=== PATIENT | male | born 1950 | race Caucasian/White ===

== ENCOUNTER 2016-08-16 17:51 | Inpatient (IN) | payer MEDICARE, OTHER ==
[~2016-08-16] VITALS: Ht 175.3 cm; Wt 78.5 kg
[2016-08-16 17:57] VITALS: BP 146/64; PULSE 92; RESP 15
[2016-08-16 18:04] LABS: BASOPHILS % (AUTO) 0.3 % (0-3); EOSINOPHILS % (AUTO) 11.1 % (0-5); MONOCYTES % (AUTO) 7.7 % (4-12); Mean Corpuscular Volume 90.4 fL (81-100); Platelet Count 318 bil/L (150-400)
--- NOTE | 2016-08-16 18:05 | ED.REPORT ---
HPI-Chest Pain 40 and Over Date of Service Aug 16, 2016 ED Provider: Dr. Rodriguez Pt is a 65 y/o homeless male w/ a hx of CAD with AZ s/p cardiac stenting, CABG, and TAVR, CVA w/ residual R-sided weakness, presenting to the ED via EMS c/o substernal sharp non-radiating CP onset 2 hours ago. At time of onset, the patient was at [facility] sitting in his electric wheelchair in order to get help because his briefs were soiled and he needed help changing them. He states he soiled himself because of uncontrollable diarrhea. His diarrhea began yesterday although he states has only had 1 episode today. He uses the wheelchair due to bilateral lower extremity weakness. He denies SOB, fever, chills, nausea, vomiting, diaphoresis, abdominal pain, change in baseline extremity weakness. According to the pt, last July and February he had MIs which were treated at [facility] in [place]. His pain now is not similar to his prior AZ because his pain is not nearly as severe. He does not believe he is having an AZ at this time because he rates his CP at a 2/10. His CP was relieved somewhat by nitro given by medics. PCP: [facility] in [place] or [place], his story is conflicting. History is difficult to obtain secondary to poor historian,patient falling asleep during the interview multiple times, and contradictory history. Nursing Notes Stated Complaint: CHEST PAIN, SHORTNESS OF BREATH Chief Complaint: Chest Pain Nursing Notes Reviewed: Yes Allergies: Coded Allergies: Sulfa (Sulfonamide Antibiotics) (Verified Allergy, Unknown, 08/16/16) alprazolam (Verified Allergy, Unknown, 08/16/16) cephalexin (Verified Allergy, Unknown, 08/16/16) morphine (Verified Allergy, Unknown, 08/16/16) General Time Seen by MD: 18:04 Chief Complaint Chest pain Hx Obtained From: Patient, EMS Arrived By: Ambulance Sudden in Onset?: Yes Onset Occurred: 1 - 4 hours ago Context of Onset: At rest Symptom Duration: Since onset Location: : Substernal Quality: Painful, Sharp Radiation: : Does not radiate Migration/Movement: Reports: None Severity: Current: Mild Severity: Maximum: Moderate Similar Sx Previous: Yes Past Medical History Past Medical History Notes: PCP: [facility] Past Medical History CAD s/p CABG and stenting 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 Physical Exam Initial Vital Signs Vital Signs (First) Date Time Temp Pulse Resp B/P Pulse Ox O2 Delivery O2 Flow Rate FiO2 08/16/16 17:57 36.9 92 15 146/64 08/16/16 19:27 Room Air 08/16/16 21:08 97 Initial VS: Reviewed, Vital signs abnormal Head / Eyes: Atraumatic, Normocephalic, PERRL ENT: Mucous membranes moist, Conjunctiva normal, No scleral icterus Neck: Supple, Full range of motion Extremities: Vascular intact, No swelling, No tenderness Skin: Warm, Dry, No cyanosis Psychiatric: Mood/affect normal, Behavior normal, Normal thought content General/Constitutional: Awake, Alert, No acute distress, Cooperative, Not toxic appearing Somnolent Feces present on hands and legs Respiratory / Chest: Breath sounds NL, Breath sounds = bilat, No respiratory distress, No rales, No rhonchi, No wheezing, No stridor, No chest tenderness Cardiovascular: Heart rate NL, Regular rhythm, Heart sounds NL, No murmurs, Peripheral circulation NL Abdomen: Atraumatic, Soft, Non-tender, No guarding, No rebound, No distention Neurologic: Oriented X3, Speech NL, No sensory deficits, Memory NL Somnolent Slight weakness to right arm, 4/5 Rectum / Perineum: Atraumatic, Blood - occult heme -, No gross blood, No discharge, No fecal impaction Interpretation & Diagnostics Lab Results Interpretation Result Diagram: 08/16/16 1800 08/16/16 1800 Test 08/16/16 18:00 08/16/16 21:05 White Blood Count 9.1th/mm3 (3.8-10.1) Red Blood Count 4.29mil/mm3 (4.40-5.80) Hemoglobin 12.0g/dL (13.8-17.2) Hematocrit 38.8% (41.0-50.0) Mean Corpuscular Volume 90.4fL (81-100) Mean Corpuscular Hemoglobin 28.0pg (27.0-35.0) Mean Corpuscular Hemoglobin Concent 30.9% (32.0-37.0) Red Cell Distribution Width 18.7% (12.3-15.4) Platelet Count 318bil/L (150-400) Neutrophils (%) (Auto) 64.0% (40-74) Lymphocytes (%) (Auto) 16.8% (14-46) Monocytes (%) (Auto) 7.7% (4-12) Eosinophils (%) (Auto) 11.1% (0-5) Basophils (%) (Auto) 0.3% (0-3) Sodium Level 137mEq/L (134-144) Potassium Level 4.8mEq/L (3.5-5.2) Chloride Level 101mEq/L (97-108) Carbon Dioxide Level 21mmol/L (18-29) Blood Urea Nitrogen 27mg/dL (8-27) Creatinine 0.97mg/dL (0.76-1.27) Estimat Glomerular Filtration Rate 82mL/min (>59) Glucose Level 97mg/dL (60-99) Calcium Level 9.1mg/dL (8.5-10.1) Magnesium Level 1.9mg/dL (1.6-2.6) Total Bilirubin 0.2mg/dL (0.0-1.2) Aspartate Amino Transf (AST/SGOT) 16U/L (0-50) Alanine Aminotransferase (ALT/SGPT) 11U/L (0-44) Alkaline Phosphatase 115U/L (25-160) Total Protein 7.5g/dL (6.4-8.4) Albumin 3.9g/dL (3.4-5.0) Troponin T 0.062ug/L (0.0-0.011) Thyroid Stimulating Hormone (TSH) 1.910uIU/mL (0.450-4.500) ECG Interpretation ECG Interpretation: Sinus rhythm 90 Increased QTc, 549 Biphasic T waves in II, AvF, V5, and V6 ST depression of 1 mm in V5 and V6 No prior available for comparison Time: 18:21 Interpreted by: ED physician Normal ECG Interpretation: No acute ischemic changes Repeat ECG: Repeat ECG unchanged X-Ray Chest Interpretation Chest Xray Interpretation: IMPRESSION: Findings suspicious for CHF. Dictated by: Ana M Smith MD, PhD on 08/16/2016 at 18:19 Approved by: Ana M Smith MD, PhD on 08/16/2016 at 18:20 View: Portable, 1 view Interpretation / Wet Read by: Interpret - Radiologist Re-Eval/Medical Decision Med Decision/Clinical Course The patient presents with chest pain and has a significant cardiac history with an abnormal EKG. He was given nitroglycerin glycerin which eventually resolved his pain. I spoke with Dr. Klein regarding this patient and he was admitted for ongoing treatment. It is very difficult to assess as patient, he kept falling asleep. Time of Eval: 19:28 Re-Evaluation/Progress Note: Pt rechecked. Rectal exam performed and negative. His CP is now 1/10. Consultation #1: Referral / Consult Name: Tabby Isbell MD Consulted With: Cardiology Call Returned at: 19:57 Sales Specialist: Agrees with eval, Agrees with plan Note: Requests to put patient on Heparin in the morning because he may get cathed. She will see him in the morning. Consultation #2: Referral / Consult Name: Maxim Meza MD Consulted With: Hospitalist Call Returned at: 20:16 Sales Specialist: Will see patient, Agrees with eval, Agrees with plan, Accepts admit Counseled Regarding: Diagnosis, Lab results, Need for admission Discharge & Departure Primary Impression: NSTEMI (non-ST elevated myocardial infarction) Disposition: ADMITTED TO HOSPITAL Discharge Condition All VS Reviewed: Yes Condition: Stable Scribe Attestation Portions of this note were transcribed by Luigi Mike. I, Dr. Rodriguez personally performed the history, physical exam and medical decision-making; I reviewed and confirmed the accuracy of the information in the transcribed note. Signed by Ana Lincoln, 08/16/16 - 1830 Keila Rodriguez MD Aug 16, 2016 18:05 LUIGI MIKE Aug 16, 2016 18:13
[2016-08-16] MEDS ORDERED: MeTOProlol 1 mg/mL 5 mL Inj IVPUSH ONE (18:20)
[2016-08-16] MEDS ORDERED: Nitroglycerin 2% 1 Gm Ointment TOPICAL ONE (18:20)
--- NOTE | 2016-08-16 18:21 | DRSVH ---
PROCEDURE: X-RAY CHEST ONE VIEW, PORTABLE ([id number]) INDICATIONS: shortness of breath chest pain TECHNIQUE: One view of the chest was acquired. COMPARISON: None. FINDINGS: Surgical changes and devices: Status post median sternotomy. Lungs and pleura: No pleural effusions or pneumothorax. Mild cephalization of the pulmonary vascula ture and bilateral perihilar indistinctness suspicious for CHF. Mediastinum: Mediastinal contours appear normal. Heart size is normal. Bones and chest wall: No suspicious bony lesions. Overlying soft tissues appear unremarkable. IMPRESSION: Findings suspicious for CHF. Dictated by: Ana M Smith MD, PhD on 08/16/2016 at 18:19 Approved by: Ana M Smith MD, PhD on 08/16/2016 at 18:20
[2016-08-16 18:37] LABS: TROPONIN T 0.049 ug/L (0.0-0.011)
[2016-08-16 18:42] LABS: Magnesium 1.9 mg/dL (1.6-2.6)
[2016-08-16 19:27] VITALS: BP 136/52; PULSE 90; RESP 17
[2016-08-16] MEDS ORDERED: Polyethylene Glycol (PEG) 17 Gm Powder PO PRN (20:35)
[2016-08-16] MEDS ORDERED: Ondansetron 2 mg/mL 2 mL Inj IVPUSH PRN (20:35)
[2016-08-16] MEDS ORDERED: Senna-Docusate 8.6-50 mg Tablet PO PRN (20:35)
[2016-08-16] MEDS ORDERED: Alum-Mag Hydrox-Simeth 30 mL Suspension PO PRN (20:35)
[2016-08-16 21:08] VITALS: BP 127/74; PULSE 87; RESP 15; O2SAT 97
[2016-08-16 22:14] LABS: TROPONIN T 0.062 ug/L (0.0-0.011)
[2016-08-16 22:33] VITALS: BP 145/99; PULSE 87; RESP 16; O2SAT 94
[2016-08-17] VITALS (9 sets, daily range): BP systolic 114–148; BP diastolic 68–87; PULSE 64–93; RESP 16–22; O2SAT 96–98
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
[2016-08-17] MEDS: Sodium Chloride LOK Flush 10 mL Syringe IVFLUSH SCH ×3 (01:24→16:30)
[2016-08-17] MEDS ORDERED: CARV25TA2 PO (03:11)
[2016-08-17] MEDS ORDERED: LISI10TA PO (03:11)
[2016-08-17] MEDS ORDERED: CLOP75TA28 PO (03:11)
[2016-08-17] MEDS ORDERED: FURO40TA4 PO (03:11)
[2016-08-17] MEDS ORDERED: ISOS30TA4 PO (03:11)
[2016-08-17 03:44] LABS: BASOPHILS % (AUTO) 0.4 % (0-3); EOSINOPHILS % (AUTO) 13.8 % (0-5); MONOCYTES % (AUTO) 6.5 % (4-12); Mean Corpuscular Hemoglobin 27.6 pg (27.0-35.0); Mean Corpuscular Volume 88.7 fL (81-100); Platelet Count 279 bil/L (150-400)
[2016-08-17 04:01] LABS: INR 0.98 ratio
[2016-08-17 05:01] LABS: TROPONIN T 0.085 ug/L (0.0-0.011)
--- NOTE | 2016-08-17 06:18 | NUR ---
Admission/NPO/droplet precautions Pt arrived to [facility] alert and oriented x 3 via gurney. Pt able to assist with transferring to bed with sliding motion. RT sided weakness noted due to CVA effects. Pt oriented to room, television, call light, telephone, and bathroom. Denies chest pain/pressure, shortness of breath and general discomfort. Pt refused ordered meyer cath at this time and opted for urinal usage. 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 Pt placed on droplet precautions due to "MRSA in lungs" per pt. "I think you guys should be gowning up." VSS. Care ongoing.
[2016-08-17] MEDS ORDERED: Heparin 5,000 Unit/mL Inj IVPUSH ONE (06:55)
[2016-08-17] MEDS ORDERED: LISI-567 PO (07:34)
[2016-08-17] MEDS ORDERED: ASPI-973 PO (07:36)
[2016-08-17] MEDS ORDERED: FERR-74 PO (07:36)
[2016-08-17] MEDS: Heparin 25K Unit/500mL 0.45 NS 25,000 UNIT in IV Premix 1 EACH IV SCH (09:01)
--- NOTE | 2016-08-17 12:24 | PCM.PNMED ---
Subjective Date of Service Aug 17, 2016 Subjective 68 male with history of CAD with stents and CABG, TVR, and CVA presented due to substernal chest pain without shortness of breath, diaphoresis, or pain radiating to his back or left arm on . Patient currently on aspirin, Plavix, lisinopril and metoprolol. Cardiology was consulted and had been recommended surgery patient on heparin which was started this morning Since admission patient since it has been feeling better but is dependent on the Nitropaste. He denies ongoing chest pain, shortness breath, diaphoresis. Denies all other review of systems. Awaiting Dr. Garcia input for cath. Exam Vital Signs Vital Sign - Last Date Time Temp Pulse Resp B/P Pulse Ox O2 Delivery O2 Flow Rate FiO2 08/17/16 10:12 64 08/17/16 08:51 36.7 16 129/87 98 Room Air Intake and Output 08/16/16 08/16/16 08/17/16 Cumulative From/Thru 15:00 23:00 07:00 08/16/16 17:57 - 08/17/16 06:33 Intake Total 0 ml 0 ml Output Total 240 ml 240 ml Balance -240 ml -240 ml Intake Oral 0 ml 0 ml Output Urine Total 240 ml 240 ml # Voids 1 1 Exam General: Awake alert and oriented. No acute distress Cardio: Regular rate and rhythm, distant murmur Respiratory: CTA bilaterally with marginal crackles Abdomen: Benign, bowel tones present, soft, nontender, nondistended Extremities: No edema, cyanosis, and is moving all 4 extremities Psych: Appropriate mood and affect Neuro: Appears grossly intact. IVs and Medications Medications Reviewed: Medications were reviewed in detail Lab and Diagnostics Result Diagram: 08/17/16 0333 08/17/16 0333 X-Rays, CTs and MRIs (08/16/16) PROCEDURE: X-RAY CHEST ONE VIEW, PORTABLE IMPRESSION: Findings suspicious for CHF. Dictated and approved by: Ana M Smith MD, PhD on 08/16/2016 at 18:19 . Assessment & Plan 65-year-old gentleman with known CAD s/p cardiac stenting, CABG, TAVR and CVA with residual right sided weakness who presented with new onset of 3/10, substernal chest pain 2 hours prior to arrival. Admitted for chest pain workup. Possible NSTEMI. Present on admission. Active. -Acute chest pain with exertion and at rest in patient with known CAD s/p cardiac stenting and CABG. typical -ECG with bundle branch block; echo pending -Troponin: increasing still very mild; Lipid panel unremarkable -Continue aspirin, Plavix, statin and metoprolol ; cont nitro paste for now -Cardiology consulted, recommend initiating heparin in the morning (pt received Lovenox in ED) for possible catheterization. -NPO pending cardiology consult Anemia, unknown chronicity. Present on admission. Active. -Likely chronic, ? iron deficiency anemia. Patient reports taking iron supplements for anemia. -Hb 12.0, Hct 38.8. No signs/symptoms of bleeding. -CBC in the morning -Consider checking iron studies; pt on iron outpatient History of cerebrovascular accident. Present on admission. Presumed stable. -Patient reports hx of several strokes and residual right-sided weakness. -Continue aspirin, statin and plavix as above History of TAVR. Present on admission. Presumed stable. -Reportedly pig valve. Pt uncertain but thinks he takes another blood thinner, denies frequent lab monitoring. -Resume plavix per Cardiology -PT/INR normal Acetaminophen-fever/headache/mild/moderate pain Antiemetics, as needed Bowel regimen, as needed. Disposition: Voiding consult for possible cath today. Pain Evaluation: Adequate Pain Control GI Prophylaxis: Not indicated VTE Prophylaxis: Sub-Q Heparin (Unfractionated) Resuscitation Status: CPR: Attempt Resuscitation Attending Statement The patient was seen and examined together with Dr. Cho on 08/17/2016 and I agree with the history, exam and plan as outlined in the note above. . Mina Cho DO Aug 17, 2016 12:24 Corey Asif MD Aug 18, 2016 09:06
--- NOTE | 2016-08-17 15:54 | NUR ---
Social Work Note: Initial Assessment Data& Assessment: EMR reviewed. SW met with pt at bedside to discuss discharge planning, SW role explained. SW phone number provided on pt whiteboard. Juan Ramon Fay is a 66 year old male admitted on 08/16/2016 for NSTEMI. Pt has [employer] insurance coverage and is a of the [employer]. Pt does not have a PCP and is from out of town. Pt is originally from [place] and has been drifting from state to state in his electric wheelchair via [employer] bus for the last couple of years. Pt is homeless and has been staying at various shelters in the cities that he stays in. Pt has obtained proof of ID from the [facility] to access his bank accounts. Pt states that his electric wheelchair is at [facility]. Pt uses the wheelchair for extra ambulation assistance due to weakness from past stroke. Pt did provide [facility] information as his sister Lena Edmonds in [facility] ([phone]), pt gave permission to contact her to notify her of his hospitalization. Pt sister explained that pt no longer has relationships with any of his other family members and confirmed that pt does not stay in one place very long despite the NH's previous arrangements for housing and other resources for pt. Pt sister states "he is a very tough case." Pt sister is agreeable to be contacted again if needed regarding pt care pt is unable to do very much from three states away. Pt does not have HH or SNF hx. Pt does not have LTC insurance. Pt is a [employer], service connection amount is unknown at this time. Pt interested in long term, specifically [facility] information. Pt is not medically ready for discharge at this time. Plan: Anticipated discharge back into the community when medically ready. SW to contact [facility] to inquire about his electric wheelchair. SW to research closes [facility] information. Pt denies any other needs. SW to continue to follow. TERESA Rabago Addendum: 08/17/16 at 1604 by RANDY LIMON Amended: Links added.
--- NOTE | 2016-08-17 16:30 | NUR ---
Agitation Patient expressed need to have bowel movement. Patient had been extremely weak and unable to move self in bed and stated multiple times he was unable to hold self up in sitting positon unsupported however patient want to be taken into bathroom stating the commode was uncomfortable. RN expressed that this was not safe to do given weakness but patient insisted and began yelling. A second RN came in room and pt agreed to try commode, he asked to be unhooked from his heart monitor and Heparin drip. RN explained he needed to have both left on as he had been experiencing chest pain and had some ectopy earlier in the day. Patient pulled off heart monitor and began to bite at IV tubing. A code simone was called, security and several staff responded. Patient was transferred to by male staff member and taken into bathroom. When returned to bed patient began apologizing. Security and extra staff left room. Patient started being verbally agressive and was poking at another RNs hand. Patient was asked to stop and both RNs stepped away from patient. He continued yelling and being verbally agressive, pt was told we would call security if he could not calm down. Patient apologized and used more appropriate tone. Patient was reconnected to IV and heart monitor.
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
--- NOTE | 2016-08-17 17:32 | DRSVH ---
[facility] [address] [address] Echocardiogram Report Name: LETICIA METZ HStudy Date : 08/17/2016 Height: 69 in Hospital Exam Location: [facility] Weight: 175 lb Gender: Male BSA: 2.0 m2 : 1950 Age: 66 yrs BP: 148/82 mmHg Reason For Study: Chest pain Ordering Physician: HOSPITALIST [facility] Performed By: Micky De La Cruz Referring Physician: BRITTNEE QUEZADA Interpretation Summary 1. Normal left ventricular size with mild to moderate concentric hypertrophy and wall motion abnormalities as noted below. Estimated EF is 35 to 40% 2. The right ventricle is not well visualized (but may be dilated). 3. The gradients across the prosthetic valve appear within normal limits. There is mild, possibly moderate insufficiency. There is no old study for comparison. Procedure: A two-dimensional transthoracic echocardiogram with color flow and Doppler was performed. The study quality was technically adequate. A contrast injection of Definity was performed to improve assessment of LV function. There is no prior echocardiogram noted for this patient. Apical views are somewhat foreshortened. Patient had difficulty with breathing exercises. The patient was in normal sinus rhythm during the exam. Left Ventricle: The left ventricle is normal in size. There is mild- moderate concentric left ventricular hypertrophy. The ejection fraction is estimated to be 35-40%. Hypokinesis of the distal anterior septum, the basal inferior wall and septum. Right Ventricle: The right ventricle is not well visualized. The right ventricle is not well visualized but appears dilated. Atria: There is severe biatrial enlargement. No color doppler evidence for an ASD. Mitral Valve: The mitral valve leaflets are mildly calcified. There is mild to moderate mitral annular calcification. There is trace mitral regurgitation. Aortic Valve: There is a bioprosthetic aortic valve. The gradients through the prosthetic aortic valve are within the normal range for this type of valve. A somewhat eccentric aortic insufficiency jet is noted - this is mild to moderate in severity. Tricuspid Valve: The tricuspid valve is not well visualized. There is trace tricuspid regurgitation. The right ventricular systolic pressure is estimated at 29 mmHg assuming a right atrial pressure of 3 mm Hg. Pulmonic Valve: The pulmonic valve is not well visualized. There is a trace or physiologic amount of pulmonic regurgitation. Great Vessels: The aortic root is normal size. The dimensions of the ascending aorta are normal. The pulmonary artery is not well visualized, but is probably normal size. The IVC is of normal diameter and collapses greater than 50% with a sniff. This suggests a low right atrial pressure of 3 mm Hg. Pericardium/ Pleura There is no pericardial effusion. There is no pleural effusion. MMode/2D Measurements & Calculations LVIDd: 5.4 cm RA long axis LVOT diam LVIDs: 4.3 cm LA A2 area: 37.9 cm FS: 20.6 % LA A4 area: 28.6 cm RA area Ao root diam EPSS: 1.4 cm LA length (vol): 6.0 cm : 3.6 cm IVSd: 1.3 cm LA vol: 153.5 ml : 25.8 cm LVPWd: 1.5 cm LA vol index RA vol: 98.9 ml RA : 50.7 mm2 IVC diam: 1.3 cm LV villagomez. diameter/BSA LV sys. diameter/BSA (cm/m^2): 2.8 (cm/m^2): 2.2 Doppler Measurements & Calculations Ao V2 max MV E max gabriel MV E/A: 0.83 TR max gabriel : 230.3 cm/sec : 78.2 cm/sec Med Peak E' Gabriel : 252.5 cm/sec Ao max PG MV A max gabriel TR max P.5 mmHg : 21.3 mmHg : 94.6 cm/sec E/E' med: 16.7 Ao mean PG Lat Peak E' Gabriel : 11.4 mmHg LVOT Max Gabriel E/E' lat: 9.0 : 102.5 cm/sec E/e' average TRENT(I,D): 2.2 cm sev ratio MV dec time Ao V2 mean LV V1 max PG TRENT indexed to BSA : 0.19 sec : 159.8 cm/sec (cm^2/m^2): 1.1 Ao V2 VTI: 44.2 cmLV V1 VTI TRENT(V,D): 1.9 cm2 : 22.9 cm Reading Physician:05:31 PM
--- NOTE | 2016-08-17 17:59 | NUR ---
Behavior Patient was seen purposely dumping urinal on floor and on himself . He then pushed call light. Male aid went into help him. Patient told aid that he had been "sitting in urine for several hours" and had " skin abrasions" from sitting in urine. Patient has no new abrasion or redness other what has been assessed and documented on admit.
[2016-08-17] MEDS: Heparin 5,000 Unit/mL Inj IVPUSH PRN (22:39)
[2016-08-18] VITALS (8 sets, daily range): BP systolic 101–126; BP diastolic 58–90; PULSE 65–83; RESP 18–22; O2SAT 93–97
[2016-08-18] MEDS: Sodium Chloride LOK Flush 10 mL Syringe IVFLUSH SCH ×3 (00:30→16:30)
[2016-08-18 03:04] LABS: BASOPHILS % (AUTO) 0.4 % (0-3); EOSINOPHILS % (AUTO) 11.9 % (0-5); MONOCYTES % (AUTO) 7.7 % (4-12); Mean Corpuscular Volume 89.9 fL (81-100); NEUTROPHILS % (AUTO) 58.3 % (40-74); Platelet Count 252 bil/L (150-400)
[2016-08-18 04:03] LABS: TROPONIN T 0.055 ug/L (0.0-0.011)
[2016-08-18] MEDS: Heparin 5,000 Unit/mL Inj IVPUSH PRN (04:36)
--- NOTE | 2016-08-18 05:14 | NUR ---
Behavior/NPO Pt was verbally aggressive to another RN at the beginning of the shift and a alda nichols was called. Once the security team arrived the pt began to calm down some but did not want to have the original RN that was providing the pt's care to continue to be his RN for the rest of the cage shift manager. I took on the care of the pt at approximately 2200. Pt has been appropriate with staff for the remainder of the night and has slept on and off for hours at a time. Pt has been incontinent of urine and has had to have a complete bedding change. Pt has been NPO since midnight.
[2016-08-18] MEDS: Heparin 25K Unit/500mL 0.45 NS 25,000 UNIT in IV Premix 1 EACH IV SCH (08:07)
--- NOTE | 2016-08-18 16:24 | NUR ---
Spoke with Nyla in patient access at [facility] and this patient is non service connected and holds MCR A Updated REMEDIAL MASSEUR and spoke with UR RN asked her to see patient and then update patient access
--- NOTE | 2016-08-18 16:40 | NUR ---
Case Management: Pt informed that he is non-[facility] connected with the [facility] and is agreeable to have Medicare as primary. Explained IMM to patient at 1620, all questions answered. Patient signed the IMM with left hand, requesting that I time and date it which I did. Signed original placed in chart, copy given to patient. Shamika Tiwari RN
--- NOTE | 2016-08-18 17:17 | NUR ---
Behavior today behavior is much improved. patient has been calm and cooperative with care. behavior is more appropriate with male caregivers. ELECTRONIC SCIENCE TEACHER reports several inappropriate comments about her appearance and work performance from patient today. patient has not been OOB during shift. independent bed mobility. denies CP/SOB throughout shift. continue to monitor.
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
[2016-08-19 00:01] VITALS: PULSE 86
[2016-08-19] MEDS: Sodium Chloride LOK Flush 10 mL Syringe IVFLUSH SCH ×3 (00:30→16:30)
[2016-08-19 02:35] LABS: Mean Corpuscular Hemoglobin 27.6 pg (27.0-35.0); Mean Corpuscular Volume 91.1 fL (81-100)
[2016-08-19 03:34] VITALS: BP 114/55; PULSE 71; RESP 18; O2SAT 94
--- NOTE | 2016-08-19 05:41 | NUR ---
Behavior/Activity Pt behavior agreeable for most of shift. Pt wanting to use the bathroom to have a bowel movement and shouting at RN that he is able to get out of bed. Pt is normally WC bound at baseline. WC obtain and 2 RN's assisted pt into WC and into BR. Pt able to help with transferring from bed to WC and WC to toilet and back to bed.. Pt had 1 large BM. VSS and Tele SR
[2016-08-19 07:22] LABS: BASOPHILS % (AUTO) 0.4 % (0-3); EOSINOPHILS % (AUTO) 10.6 % (0-5); MONOCYTES % (AUTO) 9.7 % (4-12); Mean Corpuscular Hemoglobin 27.7 pg (27.0-35.0); Mean Corpuscular Volume 90.9 fL (81-100); NEUTROPHILS % (AUTO) 58.8 % (40-74); Platelet Count 242 bil/L (150-400)
[2016-08-19 07:30] VITALS: BP 117/64; PULSE 70; RESP 18; O2SAT 97
[2016-08-19 09:19] VITALS: PULSE 70
--- NOTE | 2016-08-19 09:39 | PCM.DIMED ---
Jose Angel Barksdale DO 08/19/16 0939: Discharge Instructions Date of Service Aug 19, 2016 Dates of Hospitalization Aug 16, 2016 at 21:10 Discharge Diagnosis Discharge Diagnosis Possible NSTEMI. Present on admission. Resolved: We were initially concerned because you had some lab values consistent with a heart attack. However, over time these values went back towards normal, and in the absence of any further symptoms we do not currently think that you had a heart attack. Please continue to take all your medications as directed. Anemia, unknown chronicity. Present on admission. Active. History of cerebrovascular accident. Present on admission. Presumed stable. History of TAVR. Present on admission. Presumed stable. . Diet Discharge Diet: Heart Healthy Activity Discharge Activity: No restrictions Call your provider Call your provider for: Fever or Chills, Shortness of breath, Bleeding, Chest pain, Vomitting, Excessive diarrhea, Weakness (unilateral) Patient Instructions Follow-up plan Please establish yourself with the [facility] in the area if you intend to spend any amount of time here. You should be seen by a primary care provider, preferably through the [facility] within 2 weeks for further evaluation. Follow-up Provider: [facility] Follow-up with PCP in: 2 weeks (Please follow up at the [facility] for further evaluation) Kely Arthur DO 08/19/16 1736: Discharge Instructions Attending's Statement The patient was seen and examined together with Dr. Barksdale on 08/19/16 and I agree with the history, exam and plan as outlined in the note above. Jose Angel Barksdale DO Aug 19, 2016 09:39 Kely Arthur DO Aug 19, 2016 17:36
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
[2016-08-19 12:04] VITALS: BP 101/58; PULSE 64; RESP 16; O2SAT 96
--- NOTE | 2016-08-19 14:31 | NUR ---
spiritual care; follow up brief conversation; pt's discharge planning underway. phone call and email placed to staff at [facility] [phone] to try to locate pt's wheelchair. Left numbers for callback with pastor Ayon and chief security officer.
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
--- NOTE | 2016-08-19 16:02 | NUR ---
Social Work Note: Discharge Data& Assessment: Per pt is medically ready to discharge. Juan Ramon Fay is a 66 year old male admitted on 08/16/2016 for NSTEMI. Per pt is medically improved and ready to discharge. Pt wheelchair located at [facility] in [place] and it is being brought to the hospital today at 4:00p.m. with the rest of pt belongings. Pt states that he plans to wheel himself to the [facility] the [facility] and denies any other needs. Pt only request was for Prison and Food bank information. SW provided Prison and food bank information for both [employer] and some for in [facility] as well. SW did explain to pt that [facility], the [place] [facility] has steps to enter and they have an intake process before allowing clients to stay there. Pt explained "I can get up and get up the stairs on my own if I really needed to." Pt had been insisting RN aid in transfers, ambulating and even completing ALD's during this hospitalization. However, pt denies any other needs, emphasized that he does not require anymore assistance at this point and would like to leave the hospital as soon as his wheelchair comes. Pt shared plans to "buy a house here in [place]" with both the [place] and SW. Pt declined SW offer to arrange wheelchair van transportation for him after he found out the cost of $30 to start out and a few dollars for every mile. Pt explained "that's ridiculous." Pt confirmed his plan to ambulate independently in his wheelchair and denies any other needs. No other discharge needs identified. Plan: Per pt is medically ready to discharge back into the community via electric wheelchair. Pt declined help in arranging transportation. Pt was provided with retirement and food bank information and other resources. Pt denies any other needs or concerns. No other discharge needs identified. TERESA Rabago
--- NOTE | 2016-08-19 17:58 | NUR ---
Discharge pt discharged today at 18:00. pt's wheelchair was transported from [facility] to [facility] via [facility]. Pt's chair had to be fixed with rope prior to discharge and pt wanted to leave the old back to the wheelchair after the spare was put in it's placed. Pt stated, "just throw it away" when asked what he would like done with it. Pt was sent with a list of community resources, heart healthy diet information and given his home meds from the pharmacy. Pt voiced understanding.
== END 2016-08-19 17:36 | disposition home or self-care (01) | DRG 303 ==
LOC: SED 17:51 → EDSEX 17:51 → PCC 21:10
PROVIDERS: ADMIT Hospitalist; ATTEND Hospitalist
DX: I25.119 Atherosclerotic heart disease of native coronary artery with unspecified angina pectoris (principal); I69.351 Hemiplegia and hemiparesis following cerebral infarction affecting right dominant side; F60.9 Personality disorder, unspecified; F43.10 Post-traumatic stress disorder, unspecified; D64.9 Anemia, unspecified; I25.2 Old myocardial infarction; Z59.0 Homelessness; Z95.1 Presence of aortocoronary bypass graft; Z95.2 Presence of prosthetic heart valve; Z99.3 Dependence on wheelchair; Z95.5 Presence of coronary angioplasty implant and graft; Z79.82 Long term (current) use of aspirin

== ENCOUNTER 2016-08-20 20:52 | Observation (INO) | payer MEDICARE ==
[~2016-08-20] VITALS: Ht 175.3 cm; Wt 78.6 kg
[~2016-08-20 20:52] MED LIST: ASPI-973 PO; CARV25TA2 PO; CLOP75TA28 PO; FERR-74 PO; FURO40TA4 PO; ISOS30TA4 PO; LISI-567 PO
[2016-08-20 21:06] VITALS: BP 110/72; PULSE 82; RESP 20; O2SAT 93
[2016-08-20] MEDS ORDERED: 0.9% Sodium Chloride 1,000 ML IV ONE (21:49)
--- NOTE | 2016-08-20 22:08 | ED.REPORT ---
HPI-Chest Pain 40 and Over Date of Service Aug 20, 2016 ED Provider: Roverto Echeverria MD Patient is a 66 year old male with a history of [place] status post cardiac stenting , CABG, TAVR, COPD, CHF and CVA with residual right side weakness who presents to the ED via EMS complaining of constant chest pain for the past 3 hours. Associated symptoms including shortness of breath, vomiting and bilateral shoulder pain. He denies nausea. Patient was hospitalized 08/16/16 due to chest pain and possible NSTEMI. The patient originally told the nurse he had a pint of vodka and bottle of beer but now denies more than one beer followed by two sips of vodka. Patient is a poor historian, falling asleep multiple times during interview, claiming he is narcoleptic which is why he can't stay awake. He is verbally abusive, sexually inappropriate with female staff, and uncooperative with evaluation. Nursing Notes Stated Complaint: CHEST PAIN, ETOH Chief Complaint: Chest Pain Nursing Notes Reviewed: Yes Allergies: Coded Allergies: Sulfa (Sulfonamide Antibiotics) (Verified Allergy, Unknown, 08/20/16) alprazolam (Verified Allergy, Unknown, 08/20/16) cephalexin (Verified Allergy, Unknown, 08/20/16) levetiracetam (Verified Allergy, Unknown, 08/20/16) causes the "shakes" morphine (Verified Allergy, Unknown, 08/20/16) Scheduled Aspirin (Aspirin) 81 Mg Tablet 81 MG PO DAILY Carvedilol (Carvedilol) 25 Mg Tablet 25 MG PO BID Clopidogrel (Clopidogrel) 75 Mg Tablet 75 MG PO DAILY Ferrous Sulfate (Feosol) 325 Mg Tablet Unknown Dose PO DAILY Furosemide (Furosemide) 40 Mg Tablet 40 MG PO DAILY Isosorbide MN ER (Isosorbide MN ER) 30 Mg Tab.er.24h 30 MG PO DAILY Lisinopril (Lisinopril) 20 Mg Tablet 20 MG PO DAILY General Time Seen by MD: 21:15 Chief Complaint Chest pain Hx Obtained From: Patient Arrived By: Ambulance Sudden in Onset?: Yes Onset Occurred: 1 - 4 hours ago Symptom Duration: Constant Location: : Chest left Quality: Painful Radiation: : Does not radiate Associated with: Reports: Vomiting Recent Healthcare: Recent doctor visit, Recent hospitalization Similar Sx Previous: Yes Past Medical History Past Medical History Notes: PCP: [facility] Past Medical History CAD s/p CABG and stenting 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 Male: Reports Incontinence Physical Exam Initial Vital Signs Vital Signs (First) Date Time Temp Pulse Resp B/P Pulse Ox O2 Delivery O2 Flow Rate FiO2 08/20/16 21:06 36.1 82 20 110/72 93 Room Air Initial VS: Reviewed Alertness: Positive: Sleeping but arousable Behavior: Positive: Agitated, Appears intoxicated had two saturated diapers, incontinent Respiratory / Chest: Atraumatic, No respiratory distress Cardiovascular: Heart rate NL, Regular rhythm, Heart sounds NL Abdomen: Atraumatic, Soft, Non-tender Lower Extremity / Pelvis / MS: Atraumatic, No edema Skin: Atraumatic, Color NL, No rash, Warm, Dry Psychiatric: Affect NL, Mood NL Head / Eyes: Atraumatic, Normocephalic, PERRL, EOMI Interpretation & Diagnostics Lab Results Interpretation Result Diagram: 08/21/16 0236 08/21/16 0236 Test 08/20/16 22:37 08/20/16 22:50 Urine Color Straw (YELLOW) Urine Appearance Clear (CLEAR,HAZY) Urine pH 6.0 (5.0-8.0) Urine Specific [place] 1.005 (1.003-1.035) Urine Protein Negativemg/dL (NEG,TRACE) Urine Glucose (UA) Negativemg/dL (NEGATIVE) Urine Ketones Negativemg/dL (NEGATIVE) Urine Occult Blood Negative (NEGATIVE) Urine Nitrite Negative (NEGATIVE) Urine Bilirubin Negative (NEGATIVE) Urine Urobilinogen Normalmg/dL (NORMAL) Urine Leukocyte Esterase Negative (NEGATIVE) Urine RBC 0-2/hpf (0-2) Urine WBC 0-5/hpf (0-5) Urine Epithelial Cells Occasional/hpf (NONE-MOD) Urine Crystals None seen (NONE SEEN) Urine Bacteria None/hpf (NONE-FEW) Urine Hyaline Casts None/lpf (NONE) Urine Granular Casts None seen (NONE SEEN) Urine Waxy Casts None seen (NONE SEEN) Urine Red Blood Cell Casts None seen (NONE SEEN) Urine White Blood Cell Casts None seen (NONE SEEN) Urine Mucus None seen (None Seen) Urine Trichomonas None seen (NONE SEEN) Urine Yeast None (NONE SEEN) Urine Culture Reflexed Not indicated Hold Urine Received (Received) Prothrombin Time 9.9sec (8.1-12.5) Prothromb Time International Ratio 0.93ratio Activated Partial Thromboplast Time 27.3sec (22.8-33.0) Pro-B-Type Natriuretic Peptide 4815pg/mL (0-376) Hold Thomas Top Tube Received (Received) Alcohols 71mg/dL (0-10) ECG Interpretation ECG Interpretation: probable left atrial enlargement nonspecific intraventricular conduction delay repol abnormalities suggest ischemia, diffuse leads no significant changes from previous Time: 21:27 Interpreted by: ED physician Normal ECG Interpretation: Normal rate (78), Normal sinus rhythm X-Ray Chest Interpretation Chest Xray Interpretation: poor inspiration increased marking at the bases some infiltration on the left lower lobe View: Portable, 1 view Interpretation / Wet Read by: Wet read ED physician Re-Eval/Medical Decision Med Decision/Clinical Course 66-year-old with known coronary disease, recent non-STEMI, CHF, presents with vague chest pain of many hours duration. His initial troponin is again elevated. He does have evidence of CHF on his chest x-ray, as well as a elevated pro-B natruretic peptide. His personality disorder issues complicate his care significantly. He is repeatedly sexually aggressive with female staff and will require male staff exclusively. He has recently had a catheterization and reportedly has no surgically or endovascularly manageable disease. He is resigned to medical treatment only. Those options are likewise limited. He is admitted now for additional diuresis, trending of his troponin, and consideration of any additional measures to add to his already maximized medical regimen. Source of Hx: Old records Time of Eval: 01:00 Re-Evaluation/Progress Note: Discussed plan for admit. The patient understands and agrees to the plan. All questions were addressed. Consultation : Referral / Consult Name: Valeria George DO Consulted With: Hospitalist Call Returned at: 00:43 Firearms Sales Associate: Agrees with eval, Agrees with plan, Accepts admit Counseled Regarding: Diagnosis, Lab results, Need for admission Discharge & Departure Primary Impression: Elevated troponin Additional Impressions: CHF (congestive heart failure) Congestive heart failure type: unspecified congestive heart failure type Congestive heart failure chronicity: unspecified congestive heart failure chronicity Qualified Code: I50.9 - Heart failure, unspecified Chest pain Chest pain type: unspecified Qualified Code: R07.9 - Chest pain, unspecified NSTEMI (non-ST elevated myocardial infarction) Disposition: ADMITTED TO HOSPITAL Discharge Condition All VS Reviewed: Yes Condition: Stable Referrals: NOPCP (PCP) Scribe Attestation Portions of this note were transcribed by Cathy Rajan. I, Dr. Echeverria personally performed the history, physical exam and medical decision-making; I reviewed and confirmed the accuracy of the information in the transcribed note. Signed by: Ana Mack, 08/21/16 and 0035 Roverto Echeverria MD Aug 20, 2016 22:08 Mala Rajan Aug 20, 2016 22:15 Calcium Level 8.9mg/dL (8.5-10.1) Magnesium Level 2.2mg/dL (1.6-2.6) Total Bilirubin 0.2mg/dL (0.0-1.2) Aspartate Amino Transf (AST/SGOT) 19U/L (0-50) Alanine Aminotransferase (ALT/SGPT) 13U/L (0-44) Alkaline Phosphatase 106U/L (25-160) Troponin T 0.049ug/L (0.0-0.011) Pro-B-Type Natriuretic Peptide 4815pg/mL (0-376) Total Protein 7.6g/dL (6.4-8.4) Albumin 3.9g/dL (3.4-5.0) Hold Thomas Top Tube Received (Received) Alcohols 71mg/dL (0-10) ECG Interpretation ECG Interpretation: probable left atrial enlargement nonspecific intraventricular conduction delay repol abnormalities suggest ischemia, diffuse leads no significant changes from previous Time: 21:27 Interpreted by: ED physician Normal ECG Interpretation: Normal rate (78), Normal sinus rhythm X-Ray Chest Interpretation Chest Xray Interpretation: poor inspiration increased marking at the bases some infiltration on the left lower lobe View: Portable, 1 view Interpretation / Wet Read by: Kelly read ED physician Re-Eval/Medical Decision Source of Hx: Old records Time of Eval: 01:00 Re-Evaluation/Progress Note: Discussed plan for admit. The patient understands and agrees to the plan. All questions were addressed. Consultation : Referral / Consult Name: Valeria George DO Consulted With: Hospitalist Call Returned at: 00:43 Firearms Sales Associate: Agrees with eval, Agrees with plan, Accepts admit Counseled Regarding: Diagnosis, Lab results, Need for admission Discharge & Departure Primary Impression: Elevated troponin Additional Impressions: CHF (congestive heart failure) Congestive heart failure type: unspecified congestive heart failure type Congestive heart failure chronicity: unspecified congestive heart failure chronicity Qualified Code: I50.9 - Heart failure, unspecified Chest pain Chest pain type: unspecified Qualified Code: R07.9 - Chest pain, unspecified Disposition: ADMITTED TO HOSPITAL Discharge Condition All VS Reviewed: Yes Condition: Stable Referrals: NOPCP (PCP) Kerriibe Attestation Portions of this note were transcribed by Cathy Rajan. I, Dr. Echeverria personally performed the history, physical exam and medical decision-making; I reviewed and confirmed the accuracy of the information in the transcribed note. Signed by: Ana Mack, 08/21/16 and 0035 Roverto Echeverria MD Aug 20, 2016 22:08 Mala Rajan Aug 20, 2016 22:15
[2016-08-20] MEDS ORDERED: Pantoprazole 4 mg/mL 10 mL Inj IVPUSH ONE (22:50)
[2016-08-20 23:00] LABS: Mean Corpuscular Hemoglobin 28.4 pg (27.0-35.0); Mean Corpuscular Volume 89.9 fL (81-100)
[2016-08-20 23:01] LABS: BASOPHILS % (AUTO) 0.5 % (0-3); EOSINOPHILS % (AUTO) 7.4 % (0-5); MONOCYTES % (AUTO) 6.9 % (4-12); NEUTROPHILS % (AUTO) 63.4 % (40-74); Platelet Count 250 bil/L (150-400)
[2016-08-20 23:03] VITALS: BP 110/60; PULSE 77; RESP 14; O2SAT 98
[2016-08-20 23:18] LABS: INR 0.93 ratio
[2016-08-20 23:27] LABS: APPEARANCE,URINE CLEAR (CLEAR,HAZY); COLOR,URINE STRAW (YELLOW); OCCULT BLOOD,URINE NEGATIVE (NEGATIVE); UROBILINOGEN,URINE NORMAL (NORMAL)
[2016-08-20 23:37] LABS: Magnesium 2.2 mg/dL (1.6-2.6)
[2016-08-21] VITALS (8 sets, daily range): BP systolic 111–170; BP diastolic 56–93; PULSE 67–88; RESP 14–18; O2SAT 96–99
[2016-08-21 00:15] LABS: TROPONIN T 0.049 ug/L (0.0-0.011)
[2016-08-21] MEDS ORDERED: Polyethylene Glycol (PEG) 17 Gm Powder PO PRN (01:35)
[2016-08-21] MEDS ORDERED: Ondansetron 2 mg/mL 2 mL Inj IVPUSH PRN (01:35)
[2016-08-21] MEDS ORDERED: Alum-Mag Hydrox-Simeth 30 mL Suspension PO PRN (01:35)
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
[2016-08-21 03:14] LABS: BASOPHILS % (AUTO) 0.3 % (0-3); EOSINOPHILS % (AUTO) 9.6 % (0-5); MONOCYTES % (AUTO) 6.3 % (4-12); Mean Corpuscular Hemoglobin 27.5 pg (27.0-35.0); Mean Corpuscular Volume 90.9 fL (81-100); NEUTROPHILS % (AUTO) 56.6 % (40-74); Platelet Count 256 bil/L (150-400)
[2016-08-21 03:26] LABS: Magnesium 2.1 mg/dL (1.6-2.6)
--- NOTE | 2016-08-21 06:13 | NUR ---
Admission Pt arrived to room 3008 alert and oriented, drowsy, and with minimal complaints of tolerable pain. Pt was oriented to room, call light, bed and policies. Pt was given thorough bed bath and several skin tears and abrasions were found and documented. Pt also scratching the back upper portion of his thigh repetitively. This area was noted to have several small open areas. Pt was encouraged not to scratch area and cream was applied. Pt was placed on telemetry and instructed to not get out of bed with out calling for assistance. Pt agreed. Pts personal belongings were placed in room as well as his personal W/C.
[2016-08-21] MEDS: Isosorbide Mononitrate 30 mg ER24 Tablet PO SCH (07:42)
[2016-08-21] MEDS: Pantoprazole 20 mg ER24 Tablet PO SCH (07:42)
[2016-08-21] MEDS: Heparin 5,000 Unit/mL Inj SUBQ SCH ×2 (07:43→16:05)
--- NOTE | 2016-08-21 08:38 | DRSVH ---
PROCEDURE: X-RAY CHEST ONE VIEW, PORTABLE ([id number]) INDICATIONS: CHEST PAIN TECHNIQUE: One view of the chest was acquired. COMPARISON: [facility], CR, XR CHEST 1VW (PORTABLE), 08/16/2016, 17:55. FINDINGS: Surgical changes and devices: Status post median sternotomy. Lungs and pleura: No pleural effusions or pneumothorax. Mild cephalization of the pulmonary vascula ture and bilateral perihilar indistinctness not significantly changed.. Mediastinum: Mediastinal contours appear normal. Heart size is normal. Bones and chest wall: No suspicious bony lesions. Overlying soft tissues appear unremarkable. IMPRESSION: Persistent mild edema. Dictated by: Edward Satniago RRA Interpreted: Ana M Smith MD on 08/21/2016 at 8:36 Transcribed by: MIMI on 08/21/2016 at 8:37 Approved by: Ana M Smith MD, PhD on 08/21/2016 at 11:25
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
--- NOTE | 2016-08-21 17:54 | NUR ---
Daily update Patient is alert and oriented X4. Patient has denied chest pain or any other pain today. Patient has his personal wheelchair in room, but did not get up into wheelchair today. Patient repeatedly turns projection printer light due to having short term memory loss and not being able to remember everything he wants/needs at the time he places call light on. Uses urinal in bed. Requires assistance for complete setup with meals. Patient pleasant and cooperative with care.
--- NOTE | 2016-08-21 18:36 | NUR ---
Case Management: COS to Obs per [facility] recommendation, Dr. Will and Dr. Humphreys also agrees. This is a condition 44. Attempted to provide CAMARGO to patient but unable as he was sleeping soundly. Wes Mccord RN Addendum: 08/21/16 at 2031 by WES MCCORD CAMARGO explained to patient at 2019, all questions answered. Signed original placed in chart, copy given to patient. Wes Mccord RN
--- NOTE | 2016-08-21 23:21 | PCM.PNMED ---
Subjective Date of Service Aug 21, 2016 Subjective The patient has no further chest pain. And is beginning to feel a little bit better overall. Exam Vital Signs Vital Sign - Last Date Time Temp Pulse Resp B/P Pulse Ox O2 Delivery O2 Flow Rate FiO2 08/21/16 20:35 36.7 74 18 139/76 96 Room Air Intake and Output 08/20/16 08/20/16 08/21/16 Cumulative From/Thru 15:00 23:00 07:00 08/20/16 21:06 - 08/21/16 06:33 Intake Total 1000 ml 0 ml 1000 ml Output Total 375 ml 375 ml Balance 1000 ml -375 ml 625 ml Intake Oral 0 ml 0 ml IV Total 1000 ml 1000 ml Output Urine Total 375 ml 375 ml Exam General: Patient is in no apparent distress. His speech is low volume and rambling however he appears quite coherent. HEENT: Head is atraumatic and normocephalic. Eyes: Pupils are equally round and reactive to light and accommodation. Extraocular muscles are intact. Sclera are white, anicteric. Subconjunctival mucosa is pink. Ears and nose are unremarkable. Oropharynx: There is no mucosal lesions, there is no thrush, there is no pharyngitis. Neck: Is supple, there are no nodes, or masses or tenderness. Chest: Is clear to auscultation and percussion. There are no rales, rhonchi, wheezes or rubs. Heart: Rate, rhythm is regular. There is no new murmur, rub or gallop. Abdomen: Good bowel sounds are present. Abdomen is soft, nontender, no organomegaly or masses were appreciated. Extremities: Are well perfused. There is no edema, there is no cellulitis, no rash. Neurologic: Cranial nerves II through XII are intact. There is lower extremity weakness. Psychiatric: Patients mood is calm and shows no sign of agitation. However, he on more than one occasion broke into tears while he was talking about his past. Genital: Deferred Rectal: Deferred Lab and Diagnostics Result Diagram: 08/21/16 0236 08/21/16 0236 Additional Diagnostics . Echocardiogram Report Interpretation Summary 1. Normal left ventricular size with mild to moderate concentric hypertrophy and wall motion abnormalities as noted below. Estimated EF is 35 to 40% 2. The right ventricle is not well visualized (but may be dilated). 3. The gradients across the prosthetic valve appear within normal limits. There is mild, possibly moderate insufficiency. There is no old study for comparison. Assessment & Plan 65-year-old gentleman with known CAD s/p cardiac stenting, CABG, TAVR and CVA with residual right sided weakness admitted for elevated troponin with chest pain, now resolved Elevated troponins. Present on admission. Ongoing and trending downwards. - Significant history of CAD status post cardiac stenting and CABG - Likely secondary to CHF - Currently asymptomatic, denies chest pain - Initial troponin 0.049, continue to trend downwards - ECG - no changes from prior - Telemetry - Nothing by mouth, day team to reassess - I have asked Dr. Abdullahi to me consult on the patient. He states he saw the patient a few days ago and to refer to that consultative note. He did not see any reason to do any further studies such as stress testing or nuclear pharmaceutical stress testing. He did not believe that the patient needed any intervention such as a cardiac catheterization. He believed that the patient could be continued on his current therapy. And he also recommended that if the troponins continue to trend downward. The patient could be discharged home [facility] Please refer to Dr. Laureano Ring progress note of 08/18/2016. Congestive heart failure. Chronic. Present on admission. Ongoing - Echo 08/17/2016 showed mild to moderate left ventricular hypertrophy, wall motion abnormalities and EF 30-40% - Elevated proBNP - Continue carvedilol, furosemide, lisinopril, isosorbide mononitrate Encephalopathy. Acute. Present on admission. Improved - Most likely secondary to EtOH intoxication - Alcohol level mildly elevated at 71 - Monitor for signs of withdrawal - Thymine replacement Coronary artery disease, chronic. Present on admission. Active -Continue aspirin, plavix. - See cardiology consult and Dr. Ring progress note from previous admission a few days ago. This progress note was dated 08/18/2016. Anemia, unknown chronicity. Present on admission. Active. - Likely secondary to chronic iron deficiency anemia. Patient reports taking iron supplements for anemia. - Hb 12.4, Hct 39.2. No signs/symptoms of bleeding. - Continue home iron supplement History of cerebrovascular accident. Present on admission. Presumed stable. -Patient reports hx of several strokes and residual right-sided weakness. -Continue aspirin, plavix as above History of aortic valve replacement. Present on admission. Presumed stable. -Reportedly bovine valve. -Continue aspirin and Plavix as above. -PT/INR - 9.9/0.93 Disposition: If patient's troponins continue to trend downward we will likely discharge patient in a.m. Pain Evaluation: Adequate Pain Control GI Prophylaxis: Proton Pump Inhibitor VTE Prophylaxis: Sub-Q Heparin (Unfractionated) Resuscitation Status: CPR: Attempt Resuscitation MartinRoverto MD Aug 21, 2016 23:21
--- NOTE | 2016-08-22 00:39 | NUR ---
Picked pt up around 11 O'clock due to him being aggressive towards another aide! I went into room to introduce myself and asked him if I could do anything for him. He stated that he needed some briefs and to double layer them cause he didn't want to soak the bed! He also stated he didn't us coming in to wake him up during the night. I asked him if I could wake him for vitals when their due and he stated no! He said when he wakes up in the morning he will call us cause I told him I was concerned and he stated he would call to be changed!
[2016-08-22] MEDS: Heparin 5,000 Unit/mL Inj SUBQ SCH ×2 (01:28→09:33)
[2016-08-22 05:07] VITALS: BP 132/66; PULSE 67; RESP 18; O2SAT 98
[2016-08-22 05:48] VITALS: PULSE 61
[2016-08-22 06:10] LABS: BASOPHILS % (AUTO) 0.3 % (0-3); EOSINOPHILS % (AUTO) 13.2 % (0-5); MONOCYTES % (AUTO) 7.5 % (4-12); Mean Corpuscular Hemoglobin 28.1 pg (27.0-35.0); Mean Corpuscular Volume 90.4 fL (81-100); NEUTROPHILS % (AUTO) 58.1 % (40-74); Platelet Count 253 bil/L (150-400)
[2016-08-22 06:28] LABS: TROPONIN T 0.019 ug/L (0.0-0.011)
--- NOTE | 2016-08-22 06:30 | NUR ---
Aggressiveness Pt was very aggressive, demanding, argumentative, and upset during the 2 P Assist transfer from the bed to his electric wheelchair, so that he could use the bathroom instead of the BSC. Pt is noted to have baseline weakness due to CVA effects with right sided weakness, which makes it very difficult to transfer him. Pt grabbed the male aide by his arm and hand yanking and squeezing it very hard while yelling, "Goddamn it!" Pt is not very steady on his feet and insist on using the bathroom instead of BSC, which is a safer transfer. A new aide was assigned to the patient for care needs and no acts of aggressiveness noted. Inappropriate usage of call light throughout the shift. Care ongoing.
[2016-08-22 06:43] LABS: Magnesium 1.9 mg/dL (1.6-2.6); Phosphorus 4.1 mg/dL (2.5-4.9)
[2016-08-22] MEDS: Pantoprazole 20 mg ER24 Tablet PO SCH (07:30)
[2016-08-22 08:00] VITALS: PULSE 82
[2016-08-22] MEDS: Isosorbide Mononitrate 30 mg ER24 Tablet PO SCH (09:32)
--- NOTE | 2016-08-22 10:53 | NUR ---
Social Work: Discharge Data: Pt is on day 1 of hospitalization. EMR reviewed. D/C orders are in. No further d/c planning needs at this time. TEXTILE DESIGNER will continue to follow if needs arise. Assessment: Pt who is independent at baseline. Plan: Pt will d/c back to homelessness via bus in his electric wheelchair today. Pt declined CD resources. No further d/c planning needs at this time. TEXTILE DESIGNER will continue to follow if needs arise. TERESA Hernandes
--- NOTE | 2016-08-22 10:55 | PCM.DIMED ---
Discharge Instructions Date of Service Aug 22, 2016 Dates of Hospitalization Aug 21, 2016 at 01:23 Discharge Diagnosis Discharge Diagnosis Chest Pain Diet Discharge Diet: Heart Healthy Activity Discharge Activity: No restrictions (May return to ususal activties gradually as tolerated.) Patient Instructions Follow-up Provider: [facility] Follow-up with PCP in: 1 week Roverto Will MD Aug 22, 2016 10:55
[2016-08-22] MEDS ORDERED: Thiamine PO (10:57)
--- NOTE | 2016-08-22 11:39 | NUR ---
Discharge nursing Note: Patient was discharged to home at 1130. Patients IV was removed intact. His telemetry was discontinued. Patients discharge information was reviewed with him ans his questions were answered to his satisfaction. Patient was escorted to the hospital lobby by nursing staff member and he drove his wheelchair to his place of residence.
--- NOTE | 2016-08-23 00:18 | PCM.DC.MED ---
Discharge Summary Date of Service Aug 22, 2016 Dates of Hospitalization Date of Hospital Admission Aug 21, 2016 at 01:23 Date of Discharge: Aug 22, 2016 Providers: Admitting Physician: Valeria George DO Primary Care Physician: Anne Attending Physician: Valeria George DO Diagnosis at Time of Discharge Diagnosis at Time of Discharge Chest Pain Consultations Cardiology was consulted on this patient on the previous admission just a few days prior to this admission on 08/18/2016. Dr. Laureano Abdullahi did not recommend any further intervention at that time. Procedures Other Diagnostics . Echocardiogram Report Interpretation Summary 1. Normal left ventricular size with mild to moderate concentric hypertrophy and wall motion abnormalities as noted below. Estimated EF is 35 to 40% 2. The right ventricle is not well visualized (but may be dilated). 3. The gradients across the prosthetic valve appear within normal limits. There is mild, possibly moderate insufficiency. There is no old study for comparison. Brief History Mr. Fay is a 66-year-old male with past medical history of RI s/p cardiac stent, CABG, TAB R, COPD, CHF and CVA with residual right-sided weakness presented to the ED via EMS secondary to chest pain 3 hours. Patient was discharged from [facility] yesterday after NSTEMI workup which was determined to be negative for acute RI. Patient was discharged with no adjustment to home medications. Patient is currently homeless from hospital he traveled to [facility] and drank some beer and vodka and began to feel generally. He states he does not remember much but does remember that 2 young woman found him slumped in his wheelchair and called 911. He states he does remember having some shortness of breath and some chest pain though at time of interview he denies headache, visual disturbances, nausea/vomiting, fever/chills , chest pain, shortness of breath, abdominal pain. On arrival to ED patient was in possession of his motorized wheelchair as well as all discharge medications which had not been utilized (still sealed in package). ED course - EKG showed probable left atrial enlargement, nonspecific IVCD possible ischemia. No significant changes from previous. Chest x-ray showed some infiltration in the left lower lobe. Lab values are remarkable for a troponin of 0.049 and a pro BNP at 4815. Patient hemodynamically stable. The patient was admitted to the hospitalist service for further evaluation and treatment. Hospital Course 65-year-old gentleman with known CAD s/p cardiac stenting, CABG, TAVR and CVA with residual right sided weakness admitted for elevated troponin with chest pain, now resolved Elevated troponins. Present on admission. Ongoing and trending downwards. - Significant history of CAD status post cardiac stenting and CABG - Likely secondary to CHF - Currently asymptomatic, denies chest pain - Initial troponin 0.049, continue to trend downwards - ECG - no changes from prior - Telemetry - Nothing by mouth, day team to reassess - I have asked Dr. Abdullahi to me consult on the patient. He states he saw the patient a few days ago and to refer to that consultative note. He did not see any reason to do any further studies such as stress testing or nuclear pharmaceutical stress testing. He did not believe that the patient needed any intervention such as a cardiac catheterization. He believed that the patient could be continued on his current therapy. And he also recommended that if the troponins continue to trend downward. The patient could be discharged home to follow-up with his clinicians at the [facility].. Please refer to Dr. Laureano Ring progress note of 08/18/2016. Congestive heart failure. Chronic. Present on admission. Ongoing - Echo 08/17/2016 showed mild to moderate left ventricular hypertrophy, wall motion abnormalities and EF 30-40% - Elevated proBNP - Continue carvedilol, furosemide, lisinopril, isosorbide mononitrate Encephalopathy. Acute. Present on admission. Improved - Most likely secondary to EtOH intoxication - Alcohol level mildly elevated at 71 - Monitor for signs of withdrawal - Thymine replacement Coronary artery disease, chronic. Present on admission. Active -Continue aspirin, plavix. - See cardiology consult and Dr. Ring progress note from previous admission a few days ago. This progress note was dated 08/18/2016. Anemia, unknown chronicity. Present on admission. Active. - Likely secondary to chronic iron deficiency anemia. Patient reports taking iron supplements for anemia. - Hb 12.4, Hct 39.2. No signs/symptoms of bleeding. - Continue home iron supplement History of cerebrovascular accident. Present on admission. Presumed stable. -Patient reports hx of several strokes and residual right-sided weakness. -Continue aspirin, plavix as above History of aortic valve replacement. Present on admission. Presumed stable. -Reportedly bovine valve. -Continue aspirin and Plavix as above. -PT/INR - 9.9/0.93 Disposition: Patient's troponins continued to trend downward and Dr. Laureano Abdullahi of cardiology did not recommend any further workup for this patient's chest pain. Therefore, the patient will be discharged home. The patient is very eager to be discharged home and is already dressed and ready to go in his wheelchair at the time of my morning visit. Exam Vital Signs (Last) Date Time Temp Pulse Resp B/P Pulse Ox O2 Delivery O2 Flow Rate FiO2 08/22/16 08:00 82 08/22/16 05:07 36.8 18 132/66 98 Room Air Exam General: Patient is in no apparent distress. Patient is much more awake and alert and conversive he is up in his wheelchair dressed and ready to discharged home. He is eager to be discharged. HEENT: Head is atraumatic and normocephalic. Eyes: Pupils are equally round and reactive to light and accommodation. Extraocular muscles are intact. Sclera are white, anicteric. Subconjunctival mucosa is pink. Ears and nose are unremarkable. Oropharynx: There is no mucosal lesions, there is no thrush, there is no pharyngitis. Neck: Is supple, there are no nodes, or masses or tenderness. Chest: Is clear to auscultation and percussion. There are no rales, rhonchi, wheezes or rubs. Heart: Rate, rhythm is regular. There is no new murmur, rub or gallop. Abdomen: Good bowel sounds are present. Abdomen is soft, nontender, no organomegaly or masses were appreciated. Extremities: Are well perfused. There is no edema, there is no cellulitis, no rash. Neurologic: Cranial nerves II through XII are intact. There is lower extremity weakness. Patient is much more awake and alert and coherent. Psychiatric: Patients mood is calm and shows no sign of agitation. However, he on more than one occasion broke into tears while he was talking about his past. Genital: Deferred Rectal: Deferred Test 08/20/16 22:37 08/20/16 22:50 08/21/16 02:36 08/22/16 05:40 Urine Color Straw (YELLOW) Urine Appearance Clear (CLEAR,HAZY) Urine pH 6.0 (5.0-8.0) Urine Specific [place] 1.005 (1.003-1.035) Urine Protein Negativemg/dL (NEG,TRACE) Urine Glucose (UA) Negativemg/dL (NEGATIVE) Urine Ketones Negativemg/dL (NEGATIVE) Urine Occult Blood Negative (NEGATIVE) Urine Nitrite Negative (NEGATIVE) Urine Bilirubin Negative (NEGATIVE) Urine Urobilinogen Normalmg/dL (NORMAL) Urine Leukocyte Esterase Negative (NEGATIVE) Urine RBC 0-2/hpf (0-2) Urine WBC 0-5/hpf (0-5) Urine Epithelial Cells Occasional/hpf (NONE-MOD) Urine Crystals None seen (NONE SEEN) Urine Bacteria None/hpf (NONE-FEW) Urine Hyaline Casts None/lpf (NONE) Urine Granular Casts None seen (NONE SEEN) Urine Waxy Casts None seen (NONE SEEN) Urine Red Blood Cell Casts None seen (NONE SEEN) Urine White Blood Cell Casts None seen (NONE SEEN) Urine Mucus None seen (None Seen) Urine Trichomonas None seen (NONE SEEN) Urine Yeast None (NONE SEEN) Urine Culture Reflexed Not indicated Hold Urine Received (Received) Prothrombin Time 9.9sec (8.1-12.5) Prothromb Time International Ratio 0.93ratio Activated Partial Thromboplast Time 27.3sec (22.8-33.0) Pro-B-Type Natriuretic Peptide 4815pg/mL (0-376) Hold Thomas Top Tube Received (Received) Alcohols 71mg/dL (0-10) Lipase 20U/L (13-60) White Blood Count 6.4th/mm3 (3.8-10.1) Red Blood Count 3.56mil/mm3 (4.40-5.80) Hemoglobin 10.0g/dL (13.8-17.2) Hematocrit 32.2% (41.0-50.0) Mean Corpuscular Volume 90.4fL (81-100) Mean Corpuscular Hemoglobin 28.1pg (27.0-35.0) Mean Corpuscular Hemoglobin Concent 31.1% (32.0-37.0) Red Cell Distribution Width 18.5% (12.3-15.4) Platelet Count 253bil/L (150-400) Neutrophils (%) (Auto) 58.1% (40-74) Lymphocytes (%) (Auto) 20.7% (14-46) Monocytes (%) (Auto) 7.5% (4-12) Eosinophils (%) (Auto) 13.2% (0-5) Basophils (%) (Auto) 0.3% (0-3) Sodium Level 136mEq/L (134-144) Potassium Level 4.8mEq/L (3.5-5.2) Chloride Level 102mEq/L (97-108) Carbon Dioxide Level 20mmol/L (18-29) Blood Urea Nitrogen 27mg/dL (8-27) Creatinine 1.04mg/dL (0.76-1.27) Estimat Glomerular Filtration Rate 75mL/min (>59) Glucose Level 128mg/dL (60-99) Calcium Level 8.5mg/dL (8.5-10.1) Phosphorus Level 4.1mg/dL (2.5-4.9) Magnesium Level 1.9mg/dL (1.6-2.6) Total Bilirubin 0.2mg/dL (0.0-1.2) Aspartate Amino Transf (AST/SGOT) 13U/L (0-50) Alanine Aminotransferase (ALT/SGPT) 11U/L (0-44) Alkaline Phosphatase 97U/L (25-160) Troponin T 0.019ug/L (0.0-0.011) Total Protein 5.9g/dL (6.4-8.4) Albumin 3.1g/dL (3.4-5.0) Discharge Medications Discharge Medications ([Thiamine]) 100 MG TABLET 100 MG PO DAILY Prescribed by: MAURA WILL MD Aspirin (Aspirin) 81 Mg Tablet 81 MG PO DAILY (Reported) Carvedilol (Carvedilol) 25 Mg Tablet 25 MG PO BID (Reported) Clopidogrel (Clopidogrel) 75 Mg Tablet 75 MG PO DAILY (Reported) Ferrous Sulfate (Feosol) 325 Mg Tablet Unknown Dose PO DAILY (Reported) Furosemide (Furosemide) 40 Mg Tablet 40 MG PO DAILY (Reported) Isosorbide MN ER (Isosorbide MN ER) 30 Mg Tab.er.24h 30 MG PO DAILY (Reported) Lisinopril (Lisinopril) 20 Mg Tablet 20 MG PO DAILY (Reported) Followup Plan Disposition: Patient is being discharged home. Discharge Diet: Heart Healthy Discharge Activity: No restrictions (May return to ususal activties gradually as tolerated.) Follow-up Provider: [facility] Follow-up with PCP in: 1 week Time spent Time spent on discharging this patient was greater than 35 minutes, over half of which was involved in counseling and coordination of care. Roverto Will MD Aug 23, 2016 00:18
== END 2016-08-22 11:28 | disposition home or self-care (01) ==
LOC: SED 20:52 → EDBD 20:52 → INTOOBSV 08-21 01:23 → MPC 08-21 01:23
PROVIDERS: ADMIT Internal Medicine; ATTEND Internal Medicine
DX: R07.9 Chest pain, unspecified (principal); R79.89 Other specified abnormal findings of blood chemistry; I50.9 Heart failure, unspecified; G93.40 Encephalopathy, unspecified; I25.10 Atherosclerotic heart disease of native coronary artery without angina pectoris; D50.9 Iron deficiency anemia, unspecified; I69.351 Hemiplegia and hemiparesis following cerebral infarction affecting right dominant side; I25.2 Old myocardial infarction; J44.9 Chronic obstructive pulmonary disease, unspecified; F10.129 Alcohol abuse with intoxication, unspecified; Y90.3 Blood alcohol level of 60-79 mg/100 ml; Z95.5 Presence of coronary angioplasty implant and graft; Z95.1 Presence of aortocoronary bypass graft; Z79.82 Long term (current) use of aspirin; Z59.0 Homelessness; Z99.3 Dependence on wheelchair; Z95.2 Presence of prosthetic heart valve
CPT/HCPCS: 36415; 71010; 80053; 81000; 81002; 83690; 83735; 83880; 84100; 84484; 85025; 85610; 85730; 86850; 93005; 96361; 96374; 99285; G0378; G0480; J1644; J7030

== ENCOUNTER 2016-08-23 22:49 | Observation (INO) | payer MEDICARE, MEDICAID ==
[~2016-08-23] VITALS: Ht 175.3 cm; Wt 79.0 kg
[~2016-08-23 22:49] MED LIST changes: +Thiamine PO
--- NOTE | 2016-08-23 22:58 | ED.REPORT ---
HPI-Chest Pain 40 and Over Date of Service Aug 23, 2016 ED Provider: Dr. Dhaval Stern Patient is a 66 year old male with a history of VA status post cardiac stenting , CABG, TAVR, COPD, CHF and CVA with residual right side weakness who presents to the ED via EMS c/o chest pain for the past 3 hrs. Associated symptoms include SOB. Patient was discharged from [facility] yesterday for similar symptoms. Pt had an NSTEMI workup earlier in the week which was determined to be negative for acute VA. Patient uses an automatic wheelchair that needs to be charged. Pt did not take his Lasix or asprin today. Nursing Notes Stated Complaint: CHEST PAIN SOB Nursing Notes Reviewed: Yes Allergies: Coded Allergies: Sulfa (Sulfonamide Antibiotics) (Verified Allergy, Unknown, 08/23/16) alprazolam (Verified Allergy, Unknown, 08/23/16) cephalexin (Verified Allergy, Unknown, 08/23/16) levetiracetam (Verified Allergy, Unknown, 08/23/16) causes the "shakes" morphine (Verified Allergy, Unknown, 08/20/16) Scheduled ([Thiamine]) 100 MG TABLET 100 MG PO DAILY Aspirin (Aspirin) 81 Mg Tablet 81 MG PO DAILY Carvedilol (Carvedilol) 25 Mg Tablet 25 MG PO BID Clopidogrel (Clopidogrel) 75 Mg Tablet 75 MG PO DAILY Ferrous Sulfate (Feosol) 325 Mg Tablet Unknown Dose PO DAILY Furosemide (Furosemide) 40 Mg Tablet 40 MG PO DAILY Isosorbide MN ER (Isosorbide MN ER) 30 Mg Tab.er.24h 30 MG PO DAILY Lisinopril (Lisinopril) 20 Mg Tablet 20 MG PO DAILY General Time Seen by MD: 22:57 Chief Complaint Chest pain Hx Obtained From: Patient Arrived By: Ambulance Sudden in Onset?: Yes Onset Occurred: Just prior to arrival Symptom Duration: Since onset Recent Healthcare: Recent doctor visit Similar Sx Previous: Yes Past Medical History Past Medical History Notes: PCP: [facility] Past Medical History CAD s/p CABG and stenting 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 Physical Exam Initial Vital Signs Vital Signs (First) Date Time Temp Pulse Resp B/P Pulse Ox O2 Delivery O2 Flow Rate FiO2 08/23/16 23:03 37.1 81 18 153/75 94 Room Air Initial VS: Reviewed General/Constitutional: Awake, Alert, No acute distress, Cooperative reclining speaking in full sentences Respiratory / Chest: Atraumatic, Breath sounds NL, Breath sounds = bilat, No respiratory distress Cardiovascular: Heart rate NL, Regular rhythm, No rubs Heart Sounds / Murmur: Positive: Murmur present... (III/) midline thoracic scar Abdomen: Atraumatic, Soft, Non-tender Lower Extremity / Pelvis / MS: Atraumatic, Inspection NL, No deformity Skin: Atraumatic, Warm, Dry Neurologic: Oriented X3, Speech NL, No motor deficits Head / Eyes: Atraumatic, Normocephalic, PERRL, EOMI Upper Extremity / MS: Atraumatic, Full range of motion, No deformity Wrist / Hand: Atraumatic, Inspection NL, No deformity Ankle / Foot: Atraumatic, Inspection NL, No deformity Interpretation & Diagnostics Lab Results Interpretation Result Diagram: 08/23/16 2340 08/23/16 2340 Test 08/23/16 23:40 08/24/16 01:52 White Blood Count 6.5th/mm3 (3.8-10.1) Red Blood Count 4.00mil/mm3 (4.40-5.80) Hemoglobin 11.2g/dL (13.8-17.2) Hematocrit 36.2% (41.0-50.0) Mean Corpuscular Volume 90.5fL (81-100) Mean Corpuscular Hemoglobin 28.0pg (27.0-35.0) Mean Corpuscular Hemoglobin Concent 30.9% (32.0-37.0) Red Cell Distribution Width 18.5% (12.3-15.4) Platelet Count 278bil/L (150-400) Neutrophils (%) (Auto) 61.0% (40-74) Lymphocytes (%) (Auto) 20.6% (14-46) Monocytes (%) (Auto) 9.7% (4-12) Eosinophils (%) (Auto) 8.3% (0-5) Basophils (%) (Auto) 0.2% (0-3) Sodium Level 136mEq/L (134-144) Potassium Level 4.5mEq/L (3.5-5.2) Chloride Level 102mEq/L (97-108) Carbon Dioxide Level 20mmol/L (18-29) Blood Urea Nitrogen 23mg/dL (8-27) Creatinine 0.81mg/dL (0.76-1.27) Estimat Glomerular Filtration Rate 101mL/min (>59) Glucose Level 116mg/dL (60-99) Calcium Level 8.6mg/dL (8.5-10.1) Magnesium Level 2.2mg/dL (1.6-2.6) Total Bilirubin 0.2mg/dL (0.0-1.2) Aspartate Amino Transf (AST/SGOT) 13U/L (0-50) Alanine Aminotransferase (ALT/SGPT) 11U/L (0-44) Alkaline Phosphatase 100U/L (25-160) Troponin T 0.018ug/L (0.0-0.011) Pro-B-Type Natriuretic Peptide 2802pg/mL (0-376) Total Protein 6.9g/dL (6.4-8.4) Albumin 3.9g/dL (3.4-5.0) Hold Purple Top Tube Received (Received) Hold Blue Top Tube Received (Received) Hold Red Top Tube Received (Received) Hold [place] Top Tube Received (Received) Hold [place] Top Tube Received (Received) ECG Interpretation ECG Interpretation: intraventricular conduction delay ST depression laterally in V5 and V6 increased compared with 08/21/16 Time: 00:13 Interpreted by: ED physician Normal ECG Interpretation: Normal sinus rhythm (rate 75) X-Ray Chest Interpretation Chest Xray Interpretation: IMPRESSION: cardiomegaly post-operative changes no acute disease no change from 08/20/16 View: Portable Interpretation / Wet Read by: Wet read ED physician Re-Eval/Medical Decision Med Decision/Clinical Course Given asa and nitro SL with resolution of chest pain. ECG showed subtle differences which are of quesionable significance compared to recent. This was stable over 2 tracings. Applied 1 inch nitropaste. Cardiology advised we heparinize, pt refused drip, I gave lovenox. Time of Eval: 01:11 Re-Evaluation/Progress Note: Pt still reports chest pain. Plan for aspirin and nitroglycerin Time of Eval: 01:19 Re-Evaluation/Progress Note: Pt becomes slightly aggressive and yells at staff. He demands that he wants his nitroglycerin and says that he does not want an IV. Time of Eval: 02:16 Patient Status: Pain improved Re-Evaluation/Progress Note: Pt rechecked. Chest pain is resolved. Informed patient of need for admission for further observation. Pt understands and agrees with plan. All questions addressed. Consultation #1: Referral / Consult Name: Ej Larry MD Consulted With: Cardiology Call Returned at: 00:52 Room Designer: Agrees with eval, Agrees with plan Note: Case discussed. Consultation #2: Referral / Consult Name: Valeria George DO Consulted With: Hospitalist Call Returned at: 02:28 Room Designer: Agrees with eval, Agrees with plan, Accepts admit Note: Case discussed. Dr. George accepts admit. Counseled Regarding: Diagnosis, Lab results, Need for admission Discharge & Departure Primary Impression: Chest pain Chest pain type: unspecified Qualified Code: R07.9 - Chest pain, unspecified Disposition: ADMITTED TO HOSPITAL Discharge Condition All VS Reviewed: Yes Condition: Stable Referrals: NOPCP (PCP) [facility] Scribe Attestation Portion of this note were transcribed by Amisha Sylvester. I, Dr. Stern, personally performed the history, physical exam, and medical decision-making: I reviewed and confirmed the accuracy for the information in the transcribed note. Signed by: capri Goel, 08/24/16 0100 copies to: [facility] Dhaval Stern MD Aug 23, 2016 22:58 Amisha Sylvester Aug 23, 2016 23:06
[2016-08-23 23:03] VITALS: BP 153/75; PULSE 81; RESP 18; O2SAT 94
[2016-08-23 23:53] LABS: BASOPHILS % (AUTO) 0.2 % (0-3); EOSINOPHILS % (AUTO) 8.3 % (0-5); MONOCYTES % (AUTO) 9.7 % (4-12); Mean Corpuscular Volume 90.5 fL (81-100); Platelet Count 278 bil/L (150-400)
[2016-08-24] VITALS (9 sets, daily range): BP systolic 133–157; BP diastolic 63–83; PULSE 65–91; RESP 15–18; O2SAT 92–99
[2016-08-24 00:34] LABS: Magnesium 2.2 mg/dL (1.6-2.6); TROPONIN T 0.018 ug/L (0.0-0.011)
[2016-08-24] MEDS ORDERED: Nitroglycerin 2% 1 Gm Ointment TOPICAL SCH (02:20)
[2016-08-24] MEDS ORDERED: Ondansetron 2 mg/mL 2 mL Inj IVPUSH PRN ×2 (02:30→02:50)
[2016-08-24] MEDS ORDERED: Alum-Mag Hydrox-Simeth 30 mL Suspension PO PRN ×2 (02:30→02:50)
[2016-08-24] MEDS ORDERED: Senna-Docusate 8.6-50 mg Tablet PO PRN (02:50)
[2016-08-24] MEDS ORDERED: Atropine 1 mg/10 mL (Code) Syringe IVPUSH PRN (02:50)
[2016-08-24] MEDS ORDERED: Polyethylene Glycol (PEG) 17 Gm Powder PO PRN (02:50)
--- NOTE | 2016-08-24 03:14 | PCM.HPMED ---
Subjective Date of Service Aug 24, 2016 Primary Provider: Admitting Physician: [facility] Attending Physician: Admit Status: From the Emergency Department Chief Complaint: Chest pain History of Present Illness: Mr. Fay is a 66-year-old male with a history of myocardial infarction status post stenting and CABG, TAVR, COPD, reported history of AICD placement subsequently removed, seizure disorder, PTSD, and CVA with residual right-sided weakness requiring the use of an automatic wheelchair, with multiple admissions over the recent 2 weeks for similar presentation of current presenting symptom of chest pain. At time of initial evaluation in the emergency department, patient was quite irritated when aroused to answer questions. Patient was reluctant to participate in questioning, but was able to state that his chest pain has completely resolved, and that he does wish to be full code while here. He refused any further questioning. He stated that he "knew more about medicine than any of us." He refused blood pressure checks and demanded the cuff be removed. Per ED reports, patient refused heparin, Lovenox substituted. Denied ongoing chest pain, shortness of breath, abdominal pain. Stated that he was tired and wanted to rest, and be "left alone." Most recently admitted 08/17/2016-08/19/2016, and additionally 08/21/2016-2016, with chief complaint of chest pain. At the most recent discharge, recommendations from cardiology of the previous visit were followed, which included no additional interventions or testing, and continuance of his medications. In the ED, temperature 37.1, pulse 81, respiratory rate 18, blood pressure 153/ 75, 94% on room air; WBC 6.5, hemoglobin 11.2, platelets 278, sodium 136, potassium 4.5, creatinine 0.81, LFTs within range, troponin 0.018, pro-BNP 2802 ; EKG obtained, interpreted by ED physician with ST depression laterally in V5, V6, which appears to be changed when compared to EKG 08/21/2016. IVCD remains present. Patient provided ASA 324mg, Lovenox 75 mg, and nitroglycerin, which resolved chest pain. Due to EKG changes, and the presence of chest pain, patient was admitted for further evaluation and workup. Cardiology has kindly agreed to consult in morning. Patient was in stable condition when ready to transport to floor. Review of Systems: Review of systems obtained within limits of patient compliance with questioning. Pertinent positives and negatives as noted in history of present illness Allergies Coded Allergies: Sulfa (Sulfonamide Antibiotics) (Verified Allergy, Unknown, 08/23/16) alprazolam (Verified Allergy, Unknown, 08/23/16) cephalexin (Verified Allergy, Unknown, 08/23/16) levetiracetam (Verified Allergy, Unknown, 08/23/16) causes the "shakes" morphine (Verified Allergy, Unknown, 08/20/16) Home Medications Medication list obtained from discharge 08/22/2016: ([Thiamine]) 100 MG TABLET 100 MG PO DAILY Prescribed by: MAURA WATSON MD Aspirin (Aspirin) 81 Mg Tablet 81 MG PO DAILY (Reported) Carvedilol (Carvedilol) 25 Mg Tablet 25 MG PO BID (Reported) Clopidogrel (Clopidogrel) 75 Mg Tablet 75 MG PO DAILY (Reported) Ferrous Sulfate (Feosol) 325 Mg Tablet Unknown Dose PO DAILY (Reported) Furosemide (Furosemide) 40 Mg Tablet 40 MG PO DAILY (Reported) Isosorbide MN ER (Isosorbide MN ER) 30 Mg Tab.er.24h 30 MG PO DAILY (Reported) Lisinopril (Lisinopril) 20 Mg Tablet 20 MG PO DAILY (Reported) PMH CAD s/p CABG and stenting 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 Reported that sibling has lung disease of uncertain type or etiology Social History Occupation: retired [employer] Hx Alcohol Use: Yes (occasionally) Hx Substance Use: No Hx Tobacco Use: No Smoking Status: Never Smoker Exam Vital Signs Vital Sign - Last Date Time Temp Pulse Resp B/P Pulse Ox O2 Delivery O2 Flow Rate FiO2 08/24/16 02:28 144/63 08/24/16 02:24 83 15 94 Room Air 08/23/16 23:03 37.1 Exam General: Alert, uncooperative, no acute distress. Man resting supine in bed HEENT: Atraumatic, sclera anicteric, mucous membranes moist Cardiac: Regular rate and rhythm at time of examination with heart rate approximately 80, no murmurs appreciated Respiratory: Equal airflow all aguilar, no wheeze or rhonchi Abdomen: Nontender, soft, nondistended, Extremities: No edema of upper or lower extremities Skin: Warm and dry Neuro: CNII-XII appear to be grossly intact, facial expressions were symmetric, and speech was without slurred MSK: Deferred as patient was noncooperative Psych: Patient was notably upset and irritated with questioning when aroused from his sleep, stated that he "knows more about medicine then any of us"; appears to have poor insight and judgment, likely underlying mood disorder Lab and Diagnostics Result Diagram: 08/23/16 23408/[id number]/162339 Assessment & Plan Mr. Fay is a 66-year-old male with a history of myocardial infarction status post stenting and CABG, TAVR, COPD, reported history of AICD placement subsequently removed, seizure disorder, PTSD, and CVA with residual right-sided weakness requiring the use of an automatic wheelchair, with multiple admissions over the recent 2 weeks for similar presentation of current presenting symptom of chest pain. - Hospital day one Chest pain with evidence of EKG changes in addition to elevated troponin levels , likely acute, present on admission. Under evaluation - Medications on discharge 08/22/2016: Aspirin 81 mg daily, carvedilol 25 mg twice daily, Plavix 75 mg daily, furosemide 40 mg daily, isosorbide ER 30 mg daily, lisinopril 20 mg daily (will continue) - ED kindly contacted cardiology, who graciously agrees to consult on patient in the morning; appreciate time and recommendations - Continue therapeutic Lovenox (given at 0330 next dose would be due 1530 currently not ordered), as patient has declined heparin - Nitro prn - EKG prn CP - Telemetry Elevated troponin of undetermined significance, present on admission, chronicity unknown. Presumed stable - On admit: 0.018 - Previous values: Peak on 08/17/2016 at 0.085, and has trended down continuously with the lowest value noted on the day of current admission, 0.018 - Continue to monitor HFrEF, chronic. Presumed stable - Echo 08/17/2016: EF 35-40 with normal left ventricular size and moderate concentric hypertrophy and wall motion abnormalities, hypokinesis of the distal anterior septum, the basal inferior wall and septum; possible dilation of right ventricle, bioprosthetic aortic valve present with possible moderate insufficiency - On admit: proBNP 2802; noted to be 4815 on 08/20/2016 - Continue medications as above until evaluation by cardiology for any changes - Defer decision of limited echo/repeated echo to cardiology team Coronary artery disease status post stenting, CABG, chronic. Presumed stable - Continue medications as above until evaluation by cardiology for any changes History of AICD placement, status post removal, suspected to be secondary to MRSA infection. Presumed stable - MRSA screen 08/18/2016 was negative History of TAVR, chronic. Presumed stable - Reported to be bioprosthetic - Medications as above History of seizures, chronic. Presumed stable - No seizure medications noted on previous discharges - Continue to monitor at this time - Note patient has allergies to Xanax and Keppra Reported history of COPD, chronic. Presumed stable - DuoNebs and Accunebs as needed History of CVA with residual right-sided weakness, chronic. Presumed stable - Consider physical therapy evaluation if remains hospitalized - On therapeutic anticoagulation at this time; resume home regimen when stable for discharge History of alcohol use, chronicity unknown. Presumed stable - Previous admission 08/20/2016 alcohol level 71 - Provided thiamine 100 mg daily at previous discharge Normocytic normochromic anemia, chronic. Presumed stable - Continue iron supplementation Emotional instability in the setting of reported PTSD, and personality disorder , chronic. Ongoing - No medications on recent discharge summaries - If patient remains hospitalized, consideration of psychiatry consultation with initiation of appropriate medications for mood stabilization - PRN bowel/anti-medic/fever/bowel - DVT: On therapeutic Lovenox - GI: Not indicated - IVF: None - Diet: Nothing by mouth pending cardiology assessment for any potential interventions - Code: Full code Due to presenting symptoms, likely course of care, and risk of adverse events, patient was admitted under observation status, with anticipated length of stay fewer than 2 midnights Pain Evaluation: Adequate Pain Control GI Prophylaxis: Not indicated VTE Prophylaxis: Other Resuscitation Status: CPR: Attempt Resuscitation (therapeutic Lovenox) Attending Statement The patient was seen and examined together with house staff on 08/24/2016 and I agree with the history, exam and plan as outlined in the note above. Sandie Sharma DO Aug 24, 2016 03:14 Valeria George DO Aug 24, 2016 04:34
[2016-08-24] MEDS ORDERED: Albuterol-Ipratropium 3 mL Inhalation Solution NEB PRN (03:50)
[2016-08-24] MEDS ORDERED: Albuterol 2.5 mg/3 mL Inhalation Solution NEB PRN (03:50)
[2016-08-24] MEDS ORDERED: Isosorbide Mononitrate 30 mg ER24 Tablet PO SCH (08:30)
[2016-08-24 09:20] LABS: BASOPHILS % (AUTO) 0.3 % (0-3); EOSINOPHILS % (AUTO) 9.4 % (0-5); MONOCYTES % (AUTO) 9.1 % (4-12); Mean Corpuscular Hemoglobin 27.9 pg (27.0-35.0); Mean Corpuscular Volume 90.7 fL (81-100); NEUTROPHILS % (AUTO) 60.1 % (40-74); Platelet Count 273 bil/L (150-400)
--- NOTE | 2016-08-24 11:27 | PCM.DIMED ---
Mina Cho DO 08/24/16 1127: Discharge Instructions Date of Service Aug 24, 2016 Dates of Hospitalization Aug 24, 2016 at 03:17 Discharge Diagnosis Discharge Diagnosis NSTEMI Medication Instructions Additional med instructions Continue to take your meds as previously discussed at your last 2 admissions this month. Diet Discharge Diet: Low fat, Low Sodium Activity Discharge Activity: Limited until seen by PCP Call your provider Call your provider for: Chest pain Patient Instructions Patient Instructions You refused treatment options and wished to be discharged as soon as possible. Please follow-up with PCP in 1 week. Kely Arthur DO 08/24/16 1314: Discharge Instructions Attending's Statement The patient was seen and examined together with Dr. Cho on 08/24/16 and I agree with the history, exam and plan as outlined in the note above. Mina Cho DO Aug 24, 2016 11:27 Kely Arthur DO Aug 24, 2016 13:14
--- NOTE | 2016-08-24 11:29 | PCM.CHPCAR ---
Consult Subjective Date of service Aug 24, 2016 Date of admit Aug 24, 2016 at 03:17 Provider Requesting Consult Requesting Provider: Mina Cho DO Primary Care Physician Primary Care Physician: Sergio,[facility] Chief Complaint Chest pain History of Present Illness This is a 66-year-old gentleman with complex cardiac hx who was admitted to [facility] on 08/23/2016 with chest pain. He had prior admissions to [facility] with chest pain and every time he was noncompliant and was refusing recommendations and even medications. He is homeless. He has pretty good recollection of his medical history. He has hx of stents placement in his coronaries in the past: two stents in 2002 and three stents in 2008. Per med records it was stated that he had stenting to his circumflex vessel, his right coronary artery and his LAD in the past as well. On 05/31/2013 he had CABGx1 (KERR to LAD) and bioprosthetic aortic valve replacement at [facility]. He had several strokes in the past, one of which was a fairly prominent stroke he had during CABG as he states. He has been pretty much wheelchair-bound since that time. Per medical records he had repeated coronary angiography at outside facility which demonstrated small vessel disease involving a small occluded first diagonal vessel, septal mechanical sound technician stenosis, and moderate disease in the right coronary and left circumflex with a patent internal mammary graft to the LAD. The patient tells me that he had cardiac catheterization four months ago at [facility] at [place], [place]. He also had an ICD placed in 2014 as he states in [place], but apparently had MRSA infection of the ICD which subsequently was removed and no another device was implanted anymore. He also has evidence of moderately severe left ventricular systolic dysfunction with an ejection fraction in the 30% to 40% range. He also has a history of personality disorder and PTSD, and presumably a seizure disorder stating that his last seizure episode was four months ago. His recent ECHO from 08/17/2016 showed that he had normal left ventricular size with mild to moderate concentric hypertrophy with LV EF 35 to 40%; he has hypokinesis of the distal anterior septum, the basal inferior wall and septum. The gradients across the prosthetic valve appear within normal limits; there is mild, possibly moderate insufficiency. The right ventricular systolic pressure is estimated at 29 mmHg assuming a right atrial pressure of 3 mm Hg. He tells me that he gets chest pain once a week in the mid substernal area not radiating anywhere, aggravated with deep breathing. He is constantly in his wheelchair which is automatic. He does not have symptoms of nocturnal pulmonary congestion. Currently he is chest pain free. Review of Systems Review of Systems Twelve points of review of system are negative except the ones mentioned in HPI. PMH Past Medical History CAD s/p CABG and stenting CVA x4 with residual R arm weakness Seizures TAVR - pig valve COPD CHF TN status post cardiac stenting PTSD Past Surgical History CABGx1 Cardiac stenting x5 bioprosthetic AVR Scheduled ([Thiamine]) 100 MG TABLET 100 MG PO DAILY Aspirin (Aspirin) 81 Mg Tablet 81 MG PO DAILY (Reported) Carvedilol (Carvedilol) 25 Mg Tablet 25 MG PO BID (Reported) Clopidogrel (Clopidogrel) 75 Mg Tablet 75 MG PO DAILY (Reported) Ferrous Sulfate (Feosol) 325 Mg Tablet Unknown Dose PO DAILY (Reported) Furosemide (Furosemide) 40 Mg Tablet 40 MG PO DAILY (Reported) Isosorbide MN ER (Isosorbide MN ER) 30 Mg Tab.er.24h 30 MG PO DAILY (Reported) Lisinopril (Lisinopril) 20 Mg Tablet 10 MG PO DAILY (Reported) Current Inpatient Medications Current Medications Nitroglycerin 0.4 mg Q5MIN PRN SL Last administered on 08/24/16 03:09; Admin Dose 0.4 MG; Start 08/24/16 at 01:15; Stop 08/24/16 at 04:31; Status DC Nitroglycerin 1 inch NOW TOPICAL Last administered on 08/24/16 03:09; Admin Dose 1 INCH; Start 08/24/16 at 02:20 Al Hydrox/Mg Hydrox/Simethicone 30 ml Q6 PRN PO; Start 08/24/16 at 02:30 Ondansetron HCl Dose range: 4 mg to 8 mg Q4H PRN IVPUSH; Start 08/24/16 at 02: 30 Acetaminophen 975 mg Q6H PRN PO; Start 08/24/16 at 02:30 Enoxaparin Sodium 80 mg Q12 SUBQ; Start 08/24/16 at 08:30; Stop 08/24/16 at 08: 30; Status DC Al Hydrox/Mg Hydrox/Simethicone 30 ml Q6 PRN PO; Start 08/24/16 at 02:50; Stop 08/24/16 at 04:31; Status DC Ondansetron HCl 4-8 mg prn nausea Q4 PRN IVPUSH; Start 08/24/16 at 02:50; Stop 08/24/16 at 04:31; Status DC Senna 1 tablet BID PRN PO; Start 08/24/16 at 02:50 Polyethylene Glycol 17 gm DAILY PRN PO; Start 08/24/16 at 02:50 Acetaminophen 325 mg Q6 PRN PO; Start 08/24/16 at 02:50; Stop 08/24/16 at 04:31 ; Status DC Nitroglycerin 0.4 mg Q5MIN PRN SL; Start 08/24/16 at 02:50; Stop 08/24/16 at 04 :31; Status DC Atropine Sulfate 0.5 mg Q5MIN PRN IVPUSH; Start 08/24/16 at 02:50 Albuterol/ Ipratropium 3 ml Q4H PRN NEB; Start 08/24/16 at 03:50 Albuterol 2.5 mg Q2H PRN NEB; Start 08/24/16 at 03:50 Aspirin 81 mg DAILY PO Last administered on 08/24/16 08:51; Admin Dose 81 MG; Start 08/24/16 at 08:30 Carvedilol 25 mg BID PO Last administered on 08/24/16 08:51; Admin Dose 25 MG; Start 08/24/16 at 08:30 Clopidogrel Bisulfate 75 mg DAILY PO Last administered on 08/24/16 08:51; Admin Dose 75 MG; Start 08/24/16 at 08:30 Isosorbide Mononitrate 30 mg DAILY PO Last administered on 08/24/16 08:51; Admin Dose 30 MG; Start 08/24/16 at 08:30 Furosemide 40 mg DAILY PO; Start 08/24/16 at 08:30 Lisinopril 10 mg DAILY PO Last administered on 08/24/16 08:51; Admin Dose 10 MG ; Start 08/24/16 at 08:30 Enoxaparin Sodium 80 mg Q12H SUBQ; Start 08/24/16 at 15:30 Allergies: Coded Allergies: Sulfa (Sulfonamide Antibiotics) (Verified Allergy, Unknown, 08/23/16) alprazolam (Verified Allergy, Unknown, 08/23/16) cephalexin (Verified Allergy, Unknown, 08/23/16) levetiracetam (Verified Allergy, Unknown, 08/23/16) causes the "shakes" morphine (Verified Allergy, Unknown, 08/20/16) Social History Occupation: retired Marine Hx Alcohol Use: Yes (occasionally)Hx Substance Use: NoHx Tobacco Use: No Smoking Status: Never Smoker Exam Vital Signs Vital Sign - Last Date Time Temp Pulse Resp B/P Pulse Ox O2 Delivery O2 Flow Rate FiO2 08/24/16 09:13 65 08/24/16 08:35 16 93 Room Air 08/24/16 08:30 36.4 133/66 Objective General: Alert, uncooperative, no acute distress. Man resting supine in bed HEENT: Atraumatic, sclera anicteric, mucous membranes moist Cardiac: Regular rate and rhythm, no murmurs appreciated, JVP is not elevated Respiratory: normal breathing sounds bilaterally, no crackles, no wheezing Abdomen: Nontender with palpation, sift Extremities: No LE edema Skin: Warm and dry Psych: A&Ox3; appears to have poor insight and judgment, likely underlying mood disorder Lab and Diagnostics Result Diagram: 08/24/16 0900 08/23/16 2340 12-lead ECG On Telemetry: sinus rhythm with HR in 80s, occasional PVCs Assessment & Plan Assessment This is a very pleasant 66-year-old gentleman, currently homeless, with history of CAD, multiple stents in the past, s/p CABGx1 and bioprosthetic AVR, ischemic cardiomyopathy with LV EF 30-40%, reported hx of AICD placement in the past which was subsequently removed because of MRSA infection, no new device placed after that; hx of multiple CVAs, h/o seizures, PTSD, with h/o of multiple hospital admissions with chest pain with slightly elevated trops and noncompliance who again was admitted with chest pain with mild elevated trops on 08/23/2016 Chest pain - has atypical features. On admission he had slightly elevated trops in the same way he had on previous admission to [facility]. He has know LBBB. He has stable chronic anemia, normal kidney functions and electrolytes I advised him to proceed with lexiscan stress test, but he is refusing it. He has been generally noncompliant with medications also and that is who it has been with previous admissions also. The patient states that he would like to leave the hospital today at 1 pm and is planning to catch the train to go back to [place] to see his Director Software Development there. Unfortunately we cannot do much at this point because of his noncompliance. Continue current medications without change. CAD, s/p CABGx1 Ischemic Cardiomyopathy S/p bioprosthetic AVR hx of multiple CVAs in the past The case was discussed with plastics repairer Dr. Larry who agreed with Assessment and Plan. Pain Evaluation: Adequate Pain Control VTE Prophylaxis: Other Resuscitation Status: CPR: Attempt Resuscitation (therapeutic Lovenox) Time spent I saw and evaluated the patient. I agree with the findings and the plan of care as documented in the mid-level practioners note. Fritz Keane PA-C Aug 24, 2016 11:15 Ej Larry MD Aug 24, 2016 14:42
--- NOTE | 2016-08-24 12:01 | DRSVH ---
PROCEDURE: X-RAY CHEST ONE VIEW, PORTABLE ([id number]) INDICATIONS: chest pain TECHNIQUE: One view of the chest was acquired. COMPARISON: [facility], CR, XR CHEST 1VW (PORTABLE), 08/16/2016, 17:55. [facility], CR, XR CHEST 1VW (PORTABLE), 08/20/2016, 21:49. FINDINGS: Surgical changes and devices: Postsurgical changes are redemonstrated in the mediastinum. Lungs and pleura: The right lateral costophrenic angle is incompletely included included on the curr ent study. The left lateral costophrenic angle appears slightly blunted suggesting a small left pleu ral effusion. There are a few patchy left basilar opacities compatible with atelectasis or consolida tion. Mediastinum: Mediastinal contours appear unchanged. Heart size is borderline enlarged. Bones and chest wall: No suspicious bony lesions. Overlying soft tissues appear unremarkable. IMPRESSION: 1. Indistinct patchy left basilar opacity suggesting consolidation or atelectasis with a possible sm all left pleural effusion. Dictated by: Bong Jennings M.D. on 08/24/2016 at 11:52 Approved by: Bong Jennings M.D. on 08/24/2016 at 11:54
--- NOTE | 2016-08-24 13:22 | PCM.DC.MED ---
Discharge Summary Date of Service Aug 24, 2016 Dates of Hospitalization Date of Hospital Admission Aug 24, 2016 at 03:17 Date of Discharge: Aug 24, 2016 Providers: Admitting Physician: Valeria George DO [facility]: Valeria George DO Diagnosis at Time of Discharge Diagnosis at Time of Discharge NSTEMI Brief History The patient is a 66-year-old male with a history of myocardial infarction status post stenting and CABG, TAVR, COPD, reported history of AICD placement subsequently removed, seizure disorder, PTSD, and CVA with residual right-sided weakness requiring the use of an automatic wheelchair, with multiple admissions over the recent 2 weeks for similar presentation of current presenting symptom of chest pain. Hospital Course Today upon examination the patient's chest pain had resolved. The patient was very noncompliant with taking medications and had multiple refusals to staff. The patient refused his Lasix as well as his heparin. The patient has had made multiple comments stating that he did not need to take any Lasix even though he has CHF and refused heparin even though he has a significant heart disease and presented with chest pain. He was explained to the patient that he needed to take his medications and the patient stated that yesterday he just "did not get around to taking my medications". The patient states that he does have access to medications as currently have them however he does take them as he sees fit not necessarily as prescribed. Cardiology made recommendations for the patient and wanted the patient stay overnight to have a Lexiscan however the patient stated that he needed to leave in order to catch a train to [place] and refused the Lexiscan. Patient stated that he was going to follow up at the [facility] where he had his original surgeries for his heart. The patient had a stuffed animal that he wanted to give to a child and when told that he could not go to the third floor and randomly walking to a pediatric patient room to give them a toy the patient became upset and refused to stay and except his paperwork. The patient left prior to being given any discharge paperwork and stated that he was not going to wait for the nurse to printed out. Hospital course: Admitted: Chest pain with evidence of EKG changes in addition to elevated troponin levels , likely acute, present on admission. Under evaluation - Medications on discharge 08/22/2016: Aspirin 81 mg daily, carvedilol 25 mg twice daily, Plavix 75 mg daily, furosemide 40 mg daily, isosorbide ER 30 mg daily, lisinopril 20 mg daily (will continue) - ED kindly contacted cardiology, who graciously agrees to consult on patient in the morning; appreciate time and recommendations - Continue therapeutic Lovenox (given at 0330 next dose would be due 1530 currently not ordered), as patient has declined heparin - Nitro prn - EKG prn CP - Telemetry Elevated troponin of undetermined significance, present on admission, chronicity unknown. Presumed stable - On admit: 0.018 - Previous values: Peak on 08/17/2016 at 0.085, and has trended down continuously with the lowest value noted on the day of current admission, 0.018 - Continue to monitor HFrEF, chronic. Presumed stable - Echo 08/17/2016: EF 35-40 with normal left ventricular size and moderate concentric hypertrophy and wall motion abnormalities, hypokinesis of the distal anterior septum, the basal inferior wall and septum; possible dilation of right ventricle, bioprosthetic aortic valve present with possible moderate insufficiency - On admit: proBNP 2802; noted to be 4815 on 08/20/2016 - Continue medications as above until evaluation by cardiology for any changes - Defer decision of limited echo/repeated echo to cardiology team Coronary artery disease status post stenting, CABG, chronic. Presumed stable - Continue medications as above until evaluation by cardiology for any changes History of AICD placement, status post removal, suspected to be secondary to MRSA infection. Presumed stable - MRSA screen 08/18/2016 was negative History of TAVR, chronic. Presumed stable - Reported to be bioprosthetic - Medications as above History of seizures, chronic. Presumed stable - No seizure medications noted on previous discharges - Continue to monitor at this time - Note patient has allergies to Xanax and Keppra Reported history of COPD, chronic. Presumed stable - DuoNebs and Accunebs as needed History of CVA with residual right-sided weakness, chronic. Presumed stable - Consider physical therapy evaluation if remains hospitalized - On therapeutic anticoagulation at this time; resume home regimen when stable for discharge History of alcohol use, chronicity unknown. Presumed stable - Previous admission 08/20/2016 alcohol level 71 - Provided thiamine 100 mg daily at previous discharge Normocytic normochromic anemia, chronic. Presumed stable - Continue iron supplementation Emotional instability in the setting of reported PTSD, and personality disorder , chronic. Ongoing - No medications on recent discharge summaries - If patient remains hospitalized, consideration of psychiatry consultation with initiation of appropriate medications for mood stabilization - PRN bowel/anti-medic/fever/bowel - DVT: On therapeutic Lovenox - GI: Not indicated - IVF: None - Diet: Nothing by mouth pending cardiology assessment for any potential interventions - Code: Full code Due to presenting symptoms, likely course of care, and risk of adverse events, patient was admitted under observation status, with anticipated length of stay fewer than 2 midnights Exam Vital Signs (Last) Date Time Temp Pulse Resp B/P Pulse Ox O2 Delivery O2 Flow Rate FiO2 08/24/16 09:13 65 08/24/16 08:35 16 93 Room Air 08/24/16 08:30 36.4 133/66 Exam Physical Exam: GEN: Patient was awake, alert, responding appropriately to questions HEENT: Pupils equal round and reactive to light, extraocular eye muscles intact , Neck soft supple, trachea midline, nomocephalic/atraumatic CV: +S1/S2, regular rate and rhythm, significant grade 4/6 systolic murmur auscultated Respiratory: CTAB, no wheezes, rales, rhonchi GI: +bowel sounds x4, soft, compressible, nontender to palpation EXT: no clubbing, cyanosis, +1 pitting edema in the lower extremities bilaterally Neuro: Cranial nerves II-XII grossly intact Psych: mood and affect were appropriate Test 08/23/16 23:40 08/24/16 01:52 08/24/16 09:00 Sodium Level 136mEq/L (134-144) Potassium Level 4.5mEq/L (3.5-5.2) Chloride Level 102mEq/L (97-108) Carbon Dioxide Level 20mmol/L (18-29) Blood Urea Nitrogen 23mg/dL (8-27) Creatinine 0.81mg/dL (0.76-1.27) Estimat Glomerular Filtration Rate 101mL/min (>59) Glucose Level 116mg/dL (60-99) Calcium Level 8.6mg/dL (8.5-10.1) Magnesium Level 2.2mg/dL (1.6-2.6) Total Bilirubin 0.2mg/dL (0.0-1.2) Aspartate Amino Transf (AST/SGOT) 13U/L (0-50) Alanine Aminotransferase (ALT/SGPT) 11U/L (0-44) Alkaline Phosphatase 100U/L (25-160) Pro-B-Type Natriuretic Peptide 2802pg/mL (0-376) Total Protein 6.9g/dL (6.4-8.4) Albumin 3.9g/dL (3.4-5.0) Hold Purple Top Tube Received (Received) Hold Blue Top Tube Received (Received) Hold Red Top Tube Received (Received) Hold Alexander Top Tube Received (Received) Hold Thomas Top Tube Received (Received) White Blood Count 6.5th/mm3 (3.8-10.1) Red Blood Count 4.09mil/mm3 (4.40-5.80) Hemoglobin 11.4g/dL (13.8-17.2) Hematocrit 37.1% (41.0-50.0) Mean Corpuscular Volume 90.7fL (81-100) Mean Corpuscular Hemoglobin 27.9pg (27.0-35.0) Mean Corpuscular Hemoglobin Concent 30.7% (32.0-37.0) Red Cell Distribution Width 18.7% (12.3-15.4) Platelet Count 273bil/L (150-400) Neutrophils (%) (Auto) 60.1% (40-74) Lymphocytes (%) (Auto) 20.9% (14-46) Monocytes (%) (Auto) 9.1% (4-12) Eosinophils (%) (Auto) 9.4% (0-5) Basophils (%) (Auto) 0.3% (0-3) Troponin T 0.022ug/L (0.0-0.011) Discharge Medications Discharge Medications ([Thiamine]) 100 MG TABLET 100 MG PO DAILY Prescribed by: MAURA WATSON MD Aspirin (Aspirin) 81 Mg Tablet 81 MG PO DAILY (Reported) Carvedilol (Carvedilol) 25 Mg Tablet 25 MG PO BID (Reported) Clopidogrel (Clopidogrel) 75 Mg Tablet 75 MG PO DAILY (Reported) Ferrous Sulfate (Feosol) 325 Mg Tablet Unknown Dose PO DAILY (Reported) Furosemide (Furosemide) 40 Mg Tablet 40 MG PO DAILY (Reported) Isosorbide MN ER (Isosorbide MN ER) 30 Mg Tab.er.24h 30 MG PO DAILY (Reported) Lisinopril (Lisinopril) 20 Mg Tablet 10 MG PO DAILY (Reported) Additional med instructions Continue to take your meds as previously discussed at your last 2 admissions this month. Followup Plan Discharge Diet: Low fat, Low Sodium Discharge Activity: Limited until seen by PCP Patient Instructions You refused treatment options and wished to be discharged as soon as possible. Please follow-up with PCP in 1 week. Time spent Greater than 35 minutes Kely Arthur DO Aug 24, 2016 13:22 Troponin T 0.022ug/L (0.0-0.011) Discharge Medications Discharge Medications ([Thiamine]) 100 MG TABLET 100 MG PO DAILY Prescribed by: MAURA WATSON MD Aspirin (Aspirin) 81 Mg Tablet 81 MG PO DAILY (Reported) Carvedilol (Carvedilol) 25 Mg Tablet 25 MG PO BID (Reported) Clopidogrel (Clopidogrel) 75 Mg Tablet 75 MG PO DAILY (Reported) Ferrous Sulfate (Feosol) 325 Mg Tablet Unknown Dose PO DAILY (Reported) Furosemide (Furosemide) 40 Mg Tablet 40 MG PO DAILY (Reported) Isosorbide MN ER (Isosorbide MN ER) 30 Mg Tab.er.24h 30 MG PO DAILY (Reported) Lisinopril (Lisinopril) 20 Mg Tablet 10 MG PO DAILY (Reported) Additional med instructions Continue to take your meds as previously discussed at your last 2 admissions this month. Followup Plan Discharge Diet: Low fat, Low Sodium Discharge Activity: Limited until seen by PCP Patient Instructions You refused treatment options and wished to be discharged as soon as possible. Please follow-up with PCP in 1 week. Kely Artuhr DO Aug 24, 2016 13:22
--- NOTE | 2016-08-24 13:42 | PCM.DC.MED ---
Discharge Summary Date of Service Aug 24, 2016 Dates of Hospitalization Date of Hospital Admission Aug 24, 2016 at 03:17 Date of Discharge: Aug 24, 2016 Providers: Admitting Physician: Valeria George DO Primary Care Physician: Sergio,[facility] Attending Physician: Valeria George DO Diagnosis at Time of Discharge Diagnosis at Time of Discharge NSTEMI Procedures XRay, CTs & MRIs Chest X-ray IMPRESSION: 1. Indistinct patchy left basilar opacity suggesting consolidation or atelectasis with a possible small left pleural effusion. Dictated by: Bong Jennings M.D. 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 Hospital Course Today upon examination the patient's chest pain had resolved. The patient was very noncompliant with taking medications and had multiple refusals to staff. The patient refused his Lasix as well as his heparin. The patient has had made multiple comments stating that he did not need to take any Lasix even though he has CHF and refused heparin even though he has a significant heart disease and presented with chest pain. He was explained to the patient that he needed to take his medications and the patient stated that yesterday he just "did not get around to taking my medications". The patient states that he does have access to medications as currently have them however he does take them as he sees fit not necessarily as prescribed. Cardiology made recommendations for the patient and wanted the patient stay overnight to have a Lexiscan however the patient stated that he needed to leave in order to catch a train to [place] and refused the Lexiscan. Patient stated that he was going to follow up at the [facility] where he had his original surgeries for his heart. The patient had a stuffed animal that he wanted to give to a child and when told that he could not go to the third floor and randomly walking to a pediatric patient room to give them a toy the patient became upset and refused to stay and except his paperwork. The patient left prior to being given any discharge paperwork and stated that he was not going to wait for the nurse to printed out. Hospital course: Admitted: Chest pain with evidence of EKG changes in addition to elevated troponin levels , likely acute, present on admission. Under evaluation - Medications on discharge 08/22/2016: Aspirin 81 mg daily, carvedilol 25 mg twice daily, Plavix 75 mg daily, furosemide 40 mg daily, isosorbide ER 30 mg daily, lisinopril 20 mg daily (will continue) - ED kindly contacted cardiology, who graciously agrees to consult on patient in the morning; appreciate time and recommendations - Continue therapeutic Lovenox (given at 0330 next dose would be due 1530 currently not ordered), as patient has declined heparin - Nitro prn - EKG prn CP - Telemetry Elevated troponin of undetermined significance, present on admission, chronicity unknown. Presumed stable - On admit: 0.018 - Previous values: Peak on 08/17/2016 at 0.085, and has trended down continuously with the lowest value noted on the day of current admission, 0.018 - Continue to monitor HFrEF, chronic. Presumed stable - Echo 08/17/2016: EF 35-40 with normal left ventricular size and moderate concentric hypertrophy and wall motion abnormalities, hypokinesis of the distal anterior septum, the basal inferior wall and septum; possible dilation of right ventricle, bioprosthetic aortic valve present with possible moderate insufficiency - On admit: proBNP 2802; noted to be 4815 on 08/20/2016 - Continue medications as above until evaluation by cardiology for any changes - Defer decision of limited echo/repeated echo to cardiology team Coronary artery disease status post stenting, CABG, chronic. Presumed stable - Continue medications as above until evaluation by cardiology for any changes History of AICD placement, status post removal, suspected to be secondary to MRSA infection. Presumed stable - MRSA screen 08/18/2016 was negative History of TAVR, chronic. Presumed stable - Reported to be bioprosthetic - Medications as above History of seizures, chronic. Presumed stable - No seizure medications noted on previous discharges - Continue to monitor at this time - Note patient has allergies to Xanax and Keppra Reported history of COPD, chronic. Presumed stable - DuoNebs and Accunebs as needed History of CVA with residual right-sided weakness, chronic. Presumed stable - Consider physical therapy evaluation if remains hospitalized - On therapeutic anticoagulation at this time; resume home regimen when stable for discharge History of alcohol use, chronicity unknown. Presumed stable - Previous admission 08/20/2016 alcohol level 71 - Provided thiamine 100 mg daily at previous discharge Normocytic normochromic anemia, chronic. Presumed stable - Continue iron supplementation Emotional instability in the setting of reported PTSD, and personality disorder , chronic. Ongoing - No medications on recent discharge summaries - If patient remains hospitalized, consideration of psychiatry consultation with initiation of appropriate medications for mood stabilization - PRN bowel/anti-medic/fever/bowel - DVT: On therapeutic Lovenox - GI: Not indicated - IVF: None - Diet: Nothing by mouth pending cardiology assessment for any potential interventions - Code: Full code Disposition: Patient refused all treatment options, recommendations, and diagnostics. Patient requested to leave and left the floor prior to discharge completion. He did not sign papers for leaving AMA and did not sign discharge instructions. Exam Vital Signs (Last) Date Time Temp Pulse Resp B/P Pulse Ox O2 Delivery O2 Flow Rate FiO2 08/24/16 09:13 65 08/24/16 08:35 16 93 Room Air 08/24/16 08:30 36.4 133/66 Exam General: Alert, uncooperative, no acute distress. Man resting supine in bed Cardiac: Regular rate and rhythm at time of examination with heart rate approximately 80, no murmurs appreciated Respiratory: Equal airflow all aguilar, no wheeze or rhonchi Abdomen: Nontender, soft, nondistended, Extremities: No edema of upper or lower extremities Psych: Poor insight Test 08/23/16 23:40 08/24/16 01:52 08/24/16 09:00 Sodium Level 136mEq/L (134-144) Potassium Level 4.5mEq/L (3.5-5.2) Chloride Level 102mEq/L (97-108) Carbon Dioxide Level 20mmol/L (18-29) Blood Urea Nitrogen 23mg/dL (8-27) Creatinine 0.81mg/dL (0.76-1.27) Estimat Glomerular Filtration Rate 101mL/min (>59) Glucose Level 116mg/dL (60-99) Calcium Level 8.6mg/dL (8.5-10.1) Magnesium Level 2.2mg/dL (1.6-2.6) Total Bilirubin 0.2mg/dL (0.0-1.2) Aspartate Amino Transf (AST/SGOT) 13U/L (0-50) Alanine Aminotransferase (ALT/SGPT) 11U/L (0-44) Alkaline Phosphatase 100U/L (25-160) Pro-B-Type Natriuretic Peptide 2802pg/mL (0-376) Total Protein 6.9g/dL (6.4-8.4) Albumin 3.9g/dL (3.4-5.0) Hold Purple Top Tube Received (Received) Hold Blue Top Tube Received (Received) Hold Red Top Tube Received (Received) Hold [place] Top Tube Received (Received) Hold [place] Top Tube Received (Received) White Blood Count 6.5th/mm3 (3.8-10.1) Red Blood Count 4.09mil/mm3 (4.40-5.80) Hemoglobin 11.4g/dL (13.8-17.2) Hematocrit 37.1% (41.0-50.0) Mean Corpuscular Volume 90.7fL (81-100) Mean Corpuscular Hemoglobin 27.9pg (27.0-35.0) Mean Corpuscular Hemoglobin Concent 30.7% (32.0-37.0) Red Cell Distribution Width 18.7% (12.3-15.4) Platelet Count 273bil/L (150-400) Neutrophils (%) (Auto) 60.1% (40-74) Lymphocytes (%) (Auto) 20.9% (14-46) Monocytes (%) (Auto) 9.1% (4-12) Eosinophils (%) (Auto) 9.4% (0-5) Basophils (%) (Auto) 0.3% (0-3) Troponin T 0.022ug/L (0.0-0.011) Discharge Medications Discharge Medications ([Thiamine]) 100 MG TABLET 100 MG PO DAILY Prescribed by: MAURA WATSON MD Aspirin (Aspirin) 81 Mg Tablet 81 MG PO DAILY (Reported) Carvedilol (Carvedilol) 25 Mg Tablet 25 MG PO BID (Reported) Clopidogrel (Clopidogrel) 75 Mg Tablet 75 MG PO DAILY (Reported) Ferrous Sulfate (Feosol) 325 Mg Tablet Unknown Dose PO DAILY (Reported) Furosemide (Furosemide) 40 Mg Tablet 40 MG PO DAILY (Reported) Isosorbide MN ER (Isosorbide MN ER) 30 Mg Tab.er.24h 30 MG PO DAILY (Reported) Lisinopril (Lisinopril) 20 Mg Tablet 10 MG PO DAILY (Reported) Additional med instructions Continue to take your meds as previously discussed at your last 2 admissions this month. Followup Plan Discharge Diet: Low fat, Low Sodium Discharge Activity: Limited until seen by PCP Patient Instructions You refused treatment options and wished to be discharged as soon as possible. Please follow-up with PCP in 1 week. Time spent Greater than 35 minutes Attending Statement The patient was seen and examined together with Dr. Cho on 08/24/2016 and I agree with the history, exam and plan as outlined in the note above. Mina Cho DO Aug 24, 2016 13:42 Kely Arthur DO Aug 24, 2016 16:46
== END 2016-08-24 11:24 | disposition left against medical advice (07) ==
LOC: EDBD 22:49 → SED 22:49 → PCC 08-24 03:17
PROVIDERS: ADMIT Internal Medicine; ATTEND Internal Medicine
DX: I21.4 Non-ST elevation (NSTEMI) myocardial infarction (principal); R07.9 Chest pain, unspecified; R79.89 Other specified abnormal findings of blood chemistry; I25.2 Old myocardial infarction; J44.9 Chronic obstructive pulmonary disease, unspecified; I50.9 Heart failure, unspecified; G40.909 Epilepsy, unspecified, not intractable, without status epilepticus; F43.10 Post-traumatic stress disorder, unspecified; I69.351 Hemiplegia and hemiparesis following cerebral infarction affecting right dominant side; D64.9 Anemia, unspecified; F10.99 Alcohol use, unspecified with unspecified alcohol-induced disorder; Z99.3 Dependence on wheelchair; Z95.2 Presence of prosthetic heart valve; Z95.1 Presence of aortocoronary bypass graft; Z95.5 Presence of coronary angioplasty implant and graft; Z79.82 Long term (current) use of aspirin; Z79.51 Long term (current) use of inhaled steroids
CPT/HCPCS: 36415; 71010; 80053; 83735; 83880; 84484; 85025; 93005; 94799; 96372; 99285; G0378; J1650